=== PATIENT | male | born 1970 | race Hispanic/Latino ===

== ENCOUNTER 2018-03-17 14:47 | Emergency (ER) | payer BC ==
[2018-03-17 16:10] LABS: Absolute Lymphocytes (CBC) 1.5 K/uL (0.7-4.9); Absolute Monocytes 1.6 K/uL (0.1-1.3); Basophils % 0.5 % (0-1.3); Hematocrit 46.8 % (39.6-49.0); Lymphocytes % 9.4 % (15.3-44.8); MCV 89.8 fL (80-100); MPV 8.3 fL (7.6-11.3); RBC Red Blood Cell Count 5.21 M/uL (4.33-5.43)
[2018-03-17 16:14] LABS: Protime INR 1.11
[2018-03-17] MEDS ORDERED: AZITHROMYCIN 500 MG/250 ML BAG ONE (16:24)
[2018-03-17] MEDS ORDERED: CEFTRIAXONE/SWI 1gm 1 GM/10 ML SYR ONE (16:24)
[2018-03-17] MEDS ORDERED: NA CHLORIDE 0.9% 1,000 ML ONE (16:24)
[2018-03-17 16:31] LABS: ALT/SGPT 45 U/L (12-78); AST/SGOT 21 U/L (15-37); Albumin 3.9 g/dL (3.4-5.0); Alkaline Phosphatase 90 U/L (45-117); BUN Blood Urea Nitrogen 11 mg/dL (7-18); Bicarbonate 24 mmol/L (21-32); Bilirubin Direct 0.2 mg/dL (0-0.2); Bilirubin Total 0.7 mg/dL (0.2-1.0); Glucose Level 92 mg/dL (74-106); Lipase 181 U/L (73-393); Magnesium 1.9 mg/dL (1.8-2.4); NT PRO-BNP 19 pg/mL (<125); Potassium 4.1 mmol/L (3.5-5.1); Sodium Level 137 mmol/L (136-145); Troponin (Emerg Dept Use Only) < 0.02 ng/mL (0.0-0.045)
--- NOTE | 2018-03-17 16:31 | RAD REPORT ---
EXAM DESCRIPTION: RAD - Chest Single View - 03/17/2018 4:14 pm CLINICAL HISTORY: COUGH Chest pain. COMPARISON: Chest Single View dated 12/19/2016; Chest Pa And Lat (2 Views) dated 05/06/2016; Chest Pa And Lat (2 Views) dated 05/04/2016; CHEST SINGLE VIEW dated 06/22/2011 FINDINGS: Portable technique limits examination quality. The lungs are grossly clear. The heart is normal in size. No displaced fractures. IMPRESSION: No acute intrathoracic process suspected.
[2018-03-17 16:50] LABS: Urine Blood 2+ (NEG); Urine Glucose NEGATIVE (NEG); Urine Protein TRACE (NEG)
--- NOTE | 2018-03-17 17:07 | RAD REPORT ---
EXAM DESCRIPTION: CT - Angio Aorta For Dissection - 03/17/2018 4:53 pm CLINICAL HISTORY: Chest pain radiating to the back. Abdominal distention;Cough;Pain;SOB COMPARISON: Abdomen W Contrast dated 09/28/2016; Abdomen Pelvis W Contrast dated 05/04/2016 TECHNIQUE: CT angiography of the aorta was performed with MIPs. All CT scans are performed using dose optimization technique as appropriate and may include automated exposure control or mA/KV adjustment according to patient size. FINDINGS: A left aortic arch is present with normal branching pattern of the great vessels.No acute aortic finding is seen such as aneurysm, penetrating ulcer or dissection. The celiac axis, SMA, MIKEY and renal arteries are widely patent. No evidence of pulmonary embolism. The lungs are clear. The prominent diffuse fatty liver pattern is present.The spleen, pancreas, adrenal glands and kidneys are within normal limits for arterial phase imaging. No bowel obstruction, free fluid or abscess.A normal appendix is seen.No pathologic enlarged lymphade nopathy identified. No fracture or worrisome bone lesion seen. IMPRESSION: No acute aortic finding is demonstrated. Prominent fatty liver.
--- NOTE | 2018-03-17 18:14 | ER ---
Nurse's Notes [facility] Name: Richard Valencia Age: 48 yrs Sex: Male : 1970 Arrival Date: 03/17/2018 Time: 14:51 Bed 17 Private MD: Azeb Truong H Diagnosis: Acute upper respiratory infection, unspecified;Cough;Elevated white blood cell count Presentation: 03/17 14:56 Presenting complaint: Patient states: He's been coughing for the past 3 weeks and its aj1 getting worse. Patient has not seen his PHCP regarding this complaint. Patient has also been having abdominal pain since yesterday morning. Patient also reports body aches. Transition of care: patient was not received from another setting of care. Onset of symptoms was February 2018. Risk Assessment: Do you want to hurt yourself or someone else? Patient reports no desire to harm self or others. Initial Sepsis Screen: Does the patient meet any 2 criteria? HR > 90 bpm. No. Patient's initial sepsis screen is negative. Does the patient have a suspected source of infection? Yes: Acute abdominal pain. Care prior to arrival: None. 14:56 Method Of Arrival: Ambulatory aj1 14:56 Acuity: GANESH 3 aj1 Triage Assessment: 15:00 General: Appears in no apparent distress. comfortable, Behavior is calm, cooperative, aj1 appropriate for age. Pain: Complains of pain in abdomen Pain currently is 4 out of 10 on a pain scale. Neuro: Level of Consciousness is awake, alert, obeys commands. Cardiovascular: Patient's skin is warm and dry. Respiratory: Airway is patent Respiratory effort is even, unlabored, Respiratory pattern is regular, symmetrical. Historical: - Allergies: 15:00 No Known Allergies; aj1 - Home Meds: 15:00 aspirin 81 mg Oral chew 1 tab once daily [Active]; Amoxicillin Oral [Active]; atenolol aj1 50 mg Oral tab 1 tab once daily [Active]; - PMHx: 15:00 Hypertension; aj1 - Immunization history:: Flu vaccine is up to date. - Social history:: Smoking status: Patient/guardian denies using tobacco. - Ebola Screening: : Patient denies travel to an Ebola-affected area in the 21 days before illness onset. Screenin:02 Abuse screen: Denies threats or abuse. Denies injuries from another. Nutritional hj screening: No deficits noted. Tuberculosis screening: No symptoms or risk factors identified. Fall Risk None identified. Assessment: 15:03 General: Appears in no apparent distress. uncomfortable, Behavior is calm, cooperative, hj appropriate for age. Pain: Complains of pain in abdomen. Neuro: Level of Consciousness is awake, alert, obeys commands, Oriented to person, place, time, situation, Appropriate for age. Cardiovascular: Capillary refill < 3 seconds Patient's skin is warm and dry. Respiratory: Airway is patent Respiratory effort is even, unlabored, Respiratory pattern is regular, symmetrical. GI: Reports lower abdominal pain, upper abdominal pain. : No signs and/or symptoms were reported regarding the genitourinary system. EENT: No signs and/or symptoms were reported regarding the EENT system. Derm: No signs and/or symptoms reported regarding the dermatologic system. Musculoskeletal: No signs and/or symptoms reported regarding the musculoskeletal system. 16:40 Reassessment: Patient and/or family updated on plan of care and expected duration. Pain hj level reassessed. Patient is alert, oriented x 3, equal unlabored respirations, skin warm/dry/pink. awaiting results and POC;. Vital Signs: 15:00 BP 160 / 106; Pulse 110; Resp 18; Temp 99.4(TE); Pulse Ox 97% on R/A; Weight 81.65 kg aj1 (R); Height 5 ft. 6 in. (167.64 cm) (R); Pain 4/10; 16:40 BP 152 / 102; Pulse 88; Resp 18; Pulse Ox 99% on R/A; hj 17:37 BP 123 / 73; Pulse 69; Resp 18; Pulse Ox 100% on R/A; mt 15:00 Body Mass Index 29.05 (81.65 kg, 167.64 cm) aj1 ED Course: 14:51 Patient arrived in ED. mr 14:51 Azeb Truong DO is Private Physician. mr 14:59 Triage completed. aj1 15:00 Arm band placed on Patient placed in an exam room. aj1 15:02 Mason Zamora, RAIANA is Primary Nurse. hj 15:03 Patient has correct armband on for positive identification. Bed in low position. Call hj light in reach. Side rails up X 1. 15:06 Kole Darden MD is Attending Physician. [facility] 15:48 Radiology exam delayed due to IV insertion attempt and/or patient not having nj appropriate IV at this time. 16:00 Initial lab(s) drawn, by me, sent to lab. iw 16:14 XRAY Chest (1 view) In Process Unspecified. EDMS 16:27 Inserted saline lock: 22 gauge in right antecubital area, using aseptic technique. iw Blood collected. 16:49 CT completed. Patient moved to CT via wheelchair. cw1 16:53 CT Aorta for Dissection In Process Unspecified. EDMS 18:12 Azeb Truong DO is Referral Physician. [facility] 18:55 No provider procedures requiring assistance completed. IV discontinued, intact, hj bleeding controlled, No redness/swelling at site. Pressure dressing applied. Administered Medications: 15:45 Drug: NS 0.9% 500 ml Route: IV; Rate: bolus; Site: right antecubital; hj 15:45 Drug: NS 0.9% 1000 ml Route: IV; Rate: 125 ml/hr; Site: right antecubital; hj 18:57 Follow up: IV Status: Completed infusion hj 15:45 Drug: Zithromax 500 mg Route: IVPB; Infused Over: 1 hrs; Site: right antecubital; hj 16:45 Follow up: IV Status: Completed infusion hj 16:15 Drug: Rocephin - (cefTRIAXone) 1 grams Route: IVPB; Infused Over: 30 mins; Site: right rv antecubital; Outcome: 18:13 Discharge ordered by . [facility] 18:55 Discharged to home ambulatory, with family. 18:55 Condition: stable 18:55 Discharge instructions given to patient, family, Instructed on discharge instructions, follow up and referral plans. medication usage, Demonstrated understanding of instructions, follow-up care, medications, Prescriptions given X 2. 18:56 Patient left the ED. hj Signatures: Dispatcher [employer] EDUT Ivelisse Chanel, ARIANA RN aj1 Kole Darden MD MD cha Rivera, Evelyn Aguilera RN RN iw Woodley, Crystal cw1 Mason Zamora RN RN hj Jordan, Nathan nj Thompson, Moriah mt Vicente, Ronaldo, RN RN rv
--- NOTE | 2018-03-17 18:14 | EDPHYS ---
Physician Documentation [facility] Name: Richard Valencia Age: 48 yrs Sex: Male : 1970 Arrival Date: 03/17/2018 Time: 14:51 Bed 17 Private MD: Azeb Truong H ED Physician Kole Darden HPI: 03/17 15:38 This 48 yrs old Male presents to ER via Ambulatory with complaints of Cough. tony 15:38 The patient or guardian reports airway noise, cough. Onset: The symptoms/episode tony began/occurred 3 day(s) ago. Severity of symptoms: At their worst the symptoms were mild, in the emergency department the symptoms are unchanged. Associated signs and symptoms: Pertinent positives: nausea. Historical: - Allergies: 15:00 No Known Allergies; aj1 - Home Meds: 15:00 aspirin 81 mg Oral chew 1 tab once daily [Active]; Amoxicillin Oral [Active]; atenolol aj1 50 mg Oral tab 1 tab once daily [Active]; - PMHx: 15:00 Hypertension; aj1 - Immunization history:: Flu vaccine is up to date. - Social history:: Smoking status: Patient/guardian denies using tobacco. - Ebola Screening: : Patient denies travel to an Ebola-affected area in the 21 days before illness onset. ROS: 15:39 Constitutional: Negative for fever, chills, and weight loss, Eyes: Negative for injury, tony pain, redness, and discharge, ENT: Negative for injury, pain, and discharge, Neck: Negative for injury, pain, and swelling, Cardiovascular: Negative for chest pain, palpitations, and edema, Back: Negative for injury and pain, : Negative for injury, bleeding, discharge, and swelling, MS/Extremity: Negative for injury and deformity, Skin: Negative for injury, rash, and discoloration, Neuro: Negative for headache, weakness, numbness, tingling, and seizure, Psych: Negative for depression, anxiety, suicide ideation, homicidal ideation, and hallucinations, Allergy/Immunology: Negative for hives, rash, and allergies, Endocrine: Negative for neck swelling, polydipsia, polyuria, polyphagia, and marked weight changes, Hematologic/Lymphatic: Negative for swollen nodes, abnormal bleeding, and unusual bruising. 15:39 Respiratory: Positive for cough, shortness of breath. 15:39 Abdomen/GI: Positive for abdominal pain, nausea, of the epigastric area, right upper quadrant and left upper quadrant. Exam: 15:39 Constitutional: This is a well developed, well nourished patient who is awake, alert, tony and in no acute distress. Head/Face: Normocephalic, atraumatic. Eyes: Pupils equal round and reactive to light, extra-ocular motions intact. Lids and lashes normal. Conjunctiva and sclera are non-icteric and not injected. Cornea within normal limits. Periorbital areas with no swelling, redness, or edema. ENT: Nares patent. No nasal discharge, no septal abnormalities noted. Tympanic membranes are normal and external auditory canals are clear. Oropharynx with no redness, swelling, or masses, exudates, or evidence of obstruction, uvula midline. Mucous membranes moist. Neck: Trachea midline, no thyromegaly or masses palpated, and no cervical lymphadenopathy. Supple, full range of motion without nuchal rigidity, or vertebral point tenderness. No Meningismus. Chest/axilla: Normal chest wall appearance and motion. Nontender with no deformity. No lesions are appreciated. Cardiovascular: Regular rate and rhythm with a normal S1 and S2. No gallops, murmurs, or rubs. Normal PMI, no JVD. No pulse deficits. Back: No spinal tenderness. No costovertebral tenderness. Full range of motion. Male : Normal genitalia with no discharge or lesions. Skin: Warm, dry with normal turgor. Normal color with no rashes, no lesions, and no evidence of cellulitis. MS/ Extremity: Pulses equal, no cyanosis. Neurovascular intact. Full, normal range of motion. Neuro: Awake and alert, GCS 15, oriented to person, place, time, and situation. Cranial nerves II-XII grossly intact. Motor strength 5/5 in all extremities. Sensory grossly intact. Cerebellar exam normal. Normal gait. Psych: Awake, alert, with orientation to person, place and time. Behavior, mood, and affect are within normal limits. 15:39 Respiratory: the patient does not display signs of respiratory distress, Respirations: normal. 15:39 Abdomen/GI: Inspection: abdomen appears normal, Bowel sounds: normal, Palpation: mild abdominal tenderness, in the right upper quadrant and left upper quadrant. 18:11 Neck: ROM/movement: is normal, no acute changes, Meningeal signs: are not present, [facility] Kernig's sign is negative, Brudzinski's sign is negative. Vital Signs: 15:00 BP 160 / 106; Pulse 110; Resp 18; Temp 99.4(TE); Pulse Ox 97% on R/A; Weight 81.65 kg aj1 (R); Height 5 ft. 6 in. (167.64 cm) (R); Pain 4/10; 16:40 BP 152 / 102; Pulse 88; Resp 18; Pulse Ox 99% on R/A; hj 17:37 BP 123 / 73; Pulse 69; Resp 18; Pulse Ox 100% on R/A; mt 15:00 Body Mass Index 29.05 (81.65 kg, 167.64 cm) aj1 MDM: 15:06 Patient medically screened. [facility] 15:41 Data reviewed: vital signs, nurses notes, lab test result(s), EKG, radiologic studies, [facility] CT scan, plain films. 03/17 15:36 Order name: Basic Metabolic Panel [facility] 03/17 15:36 Order name: CBC with Diff [facility] 03/17 15:36 Order name: LFT's [facility] 03/17 15:36 Order name: Magnesium [facility] 03/17 15:36 Order name: NT PRO-BNP [facility] 03/17 15:36 Order name: PT-INR; Complete Time: 18:10 [facility] 03/17 15:36 Order name: Troponin (emerg Dept Use Only); Complete Time: 18:10 [facility] 03/17 15:36 Order name: Lipase; Complete Time: 18:10 [facility] 03/17 15:36 Order name: Flu; Complete Time: 18:10 [facility] 03/17 15:36 Order name: Urine Culture [facility] 03/17 15:37 Order name: Basic Metabolic Panel; Complete Time: 18:10 [facility] 03/17 15:37 Order name: CBC with Automated Diff; Complete Time: 18:10 [facility] 03/17 15:37 Order name: Liver (Hepatic) Function; Complete Time: 18:10 [facility] 03/17 15:37 Order name: Magnesium; Complete Time: 18:10 [facility] 03/17 15:36 Order name: XRAY Chest (1 view); Complete Time: 18:10 [facility] 03/17 15:36 Order name: EKG; Complete Time: 15:37 [facility] 03/17 15:36 Order name: Cardiac monitoring; Complete Time: 16:28 [facility] 03/17 15:36 Order name: EKG - Nurse/Tech; Complete Time: 16:28 [facility] 03/17 15:36 Order name: IV Saline Lock; Complete Time: 16:30 [facility] 03/17 15:36 Order name: Labs collected and sent; Complete Time: 16:30 [facility] 03/17 15:36 Order name: O2 Per Protocol; Complete Time: 16:28 [facility] 03/17 15:36 Order name: O2 Sat Monitoring; Complete Time: 16:28 [facility] 03/17 15:36 Order name: Urine Dipstick-Ancillary (obtain specimen); Complete Time: 16:28 [facility] 03/17 15:36 Order name: CT Aorta for Dissection; Complete Time: 18:10 [facility] 03/17 15:37 Order name: NT PRO-BNP; Complete Time: 18:10 [facility] 03/17 16:40 Order name: Urine Dipstick--Ancillary (enter results); Complete Time: 18:10 eb Administered Medications: 15:45 Drug: NS 0.9% 500 ml Route: IV; Rate: bolus; Site: right antecubital; hj 15:45 Drug: NS 0.9% 1000 ml Route: IV; Rate: 125 ml/hr; Site: right antecubital; hj 18:57 Follow up: IV Status: Completed infusion hj 15:45 Drug: Zithromax 500 mg Route: IVPB; Infused Over: 1 hrs; Site: right antecubital; hj 16:45 Follow up: IV Status: Completed infusion hj 16:15 Drug: Rocephin - (cefTRIAXone) 1 grams Route: IVPB; Infused Over: 30 mins; Site: right rv antecubital; Disposition: 03/17/18 18:13 Discharged to Home. Impression: Acute upper respiratory infection, unspecified, Cough, Elevated white blood cell count. - Condition is Stable. - Discharge Instructions: Upper Respiratory Infection, Adult, Upper Respiratory Infection, Adult, [id number], Cough, Adult, [id number], Cough, Adult. - Prescriptions for Cheratussin AC 10- 100 mg/5 mL Oral liquid - take 10 milliliter by ORAL route every 4 hours; 160 milliliter. Zithromax 500 mg Oral Tablet - take 1 tablet by ORAL route once daily for 5 days; 5 tablet. - Medication Reconciliation Form, Thank You Letter, Antibiotic Education, Prescription Opioid Use form. - Follow up: Azeb Truong DO; When: 2 - 3 days; Reason: Recheck today's complaints, Continuance of care, Re-evaluation by your physician. - Problem is new. - Symptoms have improved. Signatures: Dispatcher [employer] EDCT Ivelisse Chanel RN RN aj1 Kole Darden MD MD cha Joaquin, Henry, RN RN hj Vicente, Ronaldo, RN RN rv Corrections: (The following items were deleted from the chart) 18:56 18:13 03/17/2018 18:13 Discharged to Home. Impression: Acute upper respiratory hj infection, unspecified; Cough; Elevated white blood cell count. Condition is Stable. Forms are Medication Reconciliation Form, Thank You Letter, Antibiotic Education, Prescription Opioid Use. Follow up: Azeb Truong; When: 2 - 3 days; Reason: Recheck today's complaints, Continuance of care, Re-evaluation by your physician. Problem is new. Symptoms have improved. tony
[2018-03-17 19:10] VITALS: TEMP 99.4
[2018-03-17 19:13] VITALS: BP 123/73; O2SAT 100
--- NOTE | 2018-03-18 07:35 | EKG ---
Test Date: 2018-03-17 Test Time: 16:18:32 Tractor Trailer Driver: LIVAN MEASUREMENT RESULTS: Intervals: Rate: 95 LA: 146 QRSD: 80 QT: 320 QTc: 402 [place]: P: 12 LA: 146 QRS: 22 T: 19 INTERPRETIVE STATEMENTS: Normal sinus rhythm Normal ECG Compared to ECG 05/06/2016 06:11:30 Sinus arrhythmia no longer present ST (T wave) deviation no longer present Electronically Signed On 03-18-18 07:34:05 [employer] by Artemio Paez
== END 2018-03-17 18:56 | disposition home or self-care (01) ==
LOC: ER 14:47
DX: J06.9 Acute upper respiratory infection, unspecified (principal); D72.829 Elevated white blood cell count, unspecified; I10 Essential (primary) hypertension; Z79.82 Long term (current) use of aspirin
CPT/HCPCS: 36415; 71045; 71275; 74175; 80048; 80076; 81003; 83690; 83735; 83880; 84484; 85025; 85610; 87086; 87088; 87804; 93005; 96361; 96365; 96375; 99284; J0456; J0696; J7030; Q9967

== ENCOUNTER 2018-09-17 17:45 | Emergency (ER) | payer BC ==
--- NOTE | 2018-09-17 18:57 | RAD REPORT ---
EXAM DESCRIPTION: RAD - Chest Pa And Lat (2 Views) - 09/17/2018 6:50 pm CLINICAL HISTORY: COUGH Chest pain. COMPARISON: <Comparisons> FINDINGS: The lungs are clear. The heart is normal in size. No displaced fractures. IMPRESSION: No acute or concerning finding suspected.
[2018-09-17 19:14] LABS: RBC Red Blood Cell Count 5.26 M/uL (4.33-5.43)
[2018-09-17 19:15] LABS: Absolute Lymphocytes (CBC) 1.5 K/uL (0.7-4.9); Absolute Monocytes 1.5 K/uL (0.1-1.3); Absolute Neutrophil 13.6 K/uL (1.8-8.0); Basophils % 0.5 % (0-1.3); Eosinophils % 1.6 % (0-4.4); Hematocrit 47.3 % (39.6-49.0); Lymphocytes % 9.1 % (15.3-44.8); MPV 8.7 fL (7.6-11.3); Monocytes % 8.6 % (3.3-12.3)
[2018-09-17] MEDS ORDERED: AZITHROMYCIN 250 MG TAB ONE (19:28)
[2018-09-17] MEDS ORDERED: NA CHLORIDE 0.9% 1,000 ML ONE (19:28)
[2018-09-17] MEDS ORDERED: CEFTRIAXONE/SWI 1gm 1 GM/10 ML SYR ONE (19:28)
[2018-09-17 19:34] LABS: Albumin 4.1 g/dL (3.4-5.0); Bilirubin Total 1.1 mg/dL (0.2-1.0); Protein, Total 8.2 g/dL (6.4-8.2)
--- NOTE | 2018-09-17 19:34 | ER ---
Nurse's Notes [facility] Name: Richard Valencia Age: 48 yrs Sex: Male : 1970 Arrival Date: 09/17/2018 Time: 17:47 Bed 27 Private MD: Diagnosis: Acute bronchitis Presentation: 09/17 17:49 Presenting complaint: Productive cough with white blood streaked mucus, headache, and hb upper abdominal pain x 3 days. Transition of care: patient was not received from another setting of care. Onset of symptoms was September 14, 2018. Risk Assessment: Do you want to hurt yourself or someone else? Patient reports no desire to harm self or others. Care prior to arrival: None. 17:49 Method Of Arrival: Ambulatory hb 17:49 Acuity: GANESH 3 hb 17:49 Initial Sepsis Screen: Does the patient meet any 2 criteria? No. Patient's initial ls4 sepsis screen is negative. Does the patient have a suspected source of infection? No. Patient's initial sepsis screen is negative. Triage Assessment: 19:09 General: Appears uncomfortable, Behavior is calm, cooperative. Pain: Complains of pain ls4 in back and chest Quality of pain is described as Aggravated by coughing. Neuro: No deficits noted. Cardiovascular: No deficits noted. GI: No deficits noted. Musculoskeletal: No deficits noted. 19:09 Derm: Skin is pink, warm \T\ dry. ls4 Historical: - Allergies: 17:51 No Known Allergies; hb - Home Meds: 17:51 aspirin 81 mg Oral tab 1 tab once daily [Active]; atenolol 50 mg Oral tab 1 tab once hb daily [Active]; - PMHx: 17:51 Hypertension; hb - Immunization history:: Adult Immunizations up to date. - Social history:: Smoking status: Patient/guardian denies using tobacco, Patient/guardian denies using alcohol, street drugs, The patient lives with family. - Ebola Screening: : No symptoms or risks identified at this time. - Family history:: not pertinent. Screenin:05 Abuse screen: Denies threats or abuse. Denies injuries from another. Nutritional ls4 screening: No deficits noted. Tuberculosis screening: No symptoms or risk factors identified. Fall Risk None identified. Assessment: 18:45 GI: Bowel sounds present X 4 quads. Abd is soft and non tender X 4 quads. ls4 Vital Signs: 17:50 BP 149 / 9; Pulse 95; Resp 20; Temp 98.9; Pulse Ox 97% on R/A; Weight 81.65 kg; Height hb 5 ft. 6 in. (167.64 cm); Pain 5/10; 17:50 Body Mass Index 29.05 (81.65 kg, 167.64 cm) hb ED Course: 17:47 Patient arrived in ED. rg4 17:49 Triage completed. hb 17:50 Arm band placed on. hb 17:52 Graeme Torres MD is Attending Physician. ma2 18:39 Celine Gutiérrez RN is Primary Nurse. ls4 18:45 No provider procedures requiring assistance completed. Inserted saline lock: 20 gauge ls4 in right antecubital area, using aseptic technique. Blood collected. 18:45 Initial lab(s) drawn, by me, sent to lab. First set of blood cultures drawn Second set ls4 of blood cultures drawn. 18:48 Chest Pa And Lat (2 Views) XRAY In Process Unspecified. EDMS 19:05 Patient has correct armband on for positive identification. Placed in gown. Bed in low ls4 position. Call light in reach. Side rails up X 1. Pulse ox on. NIBP on. Warm blanket given. Verbal reassurance given. Administered Medications: 19:23 Drug: AZITHromycin 500 mg Route: PO; ls4 19:52 Follow up: Response: No adverse reaction ls4 19:52 Follow up: Response: No adverse reaction ls4 19:23 Drug: NS 0.9% 1000 ml Route: IV; Rate: 1 bolus; Site: right antecubital; ls4 20:18 Follow up: IV Status: Completed infusion; IV Intake: 1000ml ls4 19:24 Drug: Rocephin 1 grams Route: IV; Rate: calculated rate; Site: right antecubital; ls4 19:34 Follow up: IV Status: Completed infusion; IV Intake: 10ml ls4 19:52 Follow up: Response: No adverse reaction ls4 20:00 Drug: TORadol 30 mg Route: IVP; Site: right antecubital; ls4 20:18 Follow up: Response: No adverse reaction; Marked relief of symptoms ls4 Intake: 19:34 IV: 10ml; Total: 10ml. ls4 20:18 IV: 1000ml; Total: 1010ml. ls4 Outcome: 19:33 Discharge ordered by . simón 20:22 Patient left the ED. ls4 Signatures: Dispatcher [employer] EDDamari Ford, RN RN Meghana Head rg4 Graeme Torres MD MD ma2 Celine Gutiérrez RN RN ls4
--- NOTE | 2018-09-17 19:34 | EDPHYS ---
Physician Documentation [facility] Name: Richard Valencia Age: 48 yrs Sex: Male : 1970 Arrival Date: 09/17/2018 Time: 17:47 Bed 27 Private MD: ED Physician Graeme Torres HPI: 09/17 18:56 This 48 yrs old Male presents to ER via Ambulatory with complaints of ma2 Abdominal Pain, Cough. 18:56 Onset: The symptoms/episode began/occurred gradually, 2 day(s) ago. Severity of ma2 symptoms: At their worst the symptoms were moderate, in the emergency department the symptoms are unchanged. Associated signs and symptoms: Pertinent positives: chest pain, cough, this patient has no pertinent positive symptoms Pertinent negatives: diarrhea, ear ache, nausea. The patient has experienced a previous episode, last year. Historical: - Allergies: 17:51 No Known Allergies; hb - Home Meds: 17:51 aspirin 81 mg Oral tab 1 tab once daily [Active]; atenolol 50 mg Oral tab 1 tab once hb daily [Active]; - PMHx: 17:51 Hypertension; hb - Immunization history:: Adult Immunizations up to date. - Social history:: Smoking status: Patient/guardian denies using tobacco, Patient/guardian denies using alcohol, street drugs, The patient lives with family. - Ebola Screening: : No symptoms or risks identified at this time. - Family history:: not pertinent. ROS: 18:56 Constitutional: Negative for fever, chills, and weight loss. ma2 18:56 Respiratory: Positive for cough, hemoptysis, Negative for orthopnea, shortness of breath, wheezing. 18:56 All other systems are negative. Exam: 18:56 Constitutional: This is a well developed, well nourished patient who is awake, alert, ma2 and in no acute distress. Head/Face: Normocephalic, atraumatic. Neck: Trachea midline, no thyromegaly or masses palpated, and no cervical lymphadenopathy. Supple, full range of motion without nuchal rigidity, or vertebral point tenderness. No Meningismus. Chest/axilla: Normal chest wall appearance and motion. Nontender with no deformity. No lesions are appreciated. Cardiovascular: Regular rate and rhythm with a normal S1 and S2. No gallops, murmurs, or rubs. Normal PMI, no JVD. No pulse deficits. Respiratory: Lungs have equal breath sounds bilaterally, clear to auscultation and percussion. No rales, rhonchi or wheezes noted. No increased work of breathing, no retractions or nasal flaring. Abdomen/GI: Soft, non-tender, with normal bowel sounds. No distension or tympany. No guarding or rebound. No evidence of tenderness throughout. MS/ Extremity: Pulses equal, no cyanosis. Neurovascular intact. Full, normal range of motion. Neuro: Awake and alert, GCS 15, oriented to person, place, time, and situation. Cranial nerves II-XII grossly intact. Motor strength 5/5 in all extremities. Sensory grossly intact. Cerebellar exam normal. Normal gait. 18:56 ENT: TM's: are normal, Nose: is normal, Mouth: is normal, Posterior pharynx: Tonsils: ma2 bilaterally enlarged, with erythema, with exudate, erythema. Vital Signs: 17:50 BP 149 / 9; Pulse 95; Resp 20; Temp 98.9; Pulse Ox 97% on R/A; Weight 81.65 kg; Height hb 5 ft. 6 in. (167.64 cm); Pain 5/10; 17:50 Body Mass Index 29.05 (81.65 kg, 167.64 cm) hb MDM: 17:52 Patient medically screened. [facility] 18:56 Differential Diagnosis: Bronchitis Upper Respiratory Infection Pharyngitis. [facility] 19:33 Data reviewed: vital signs, nurses notes. Counseling: I had a detailed discussion with [facility] the patient and/or guardian regarding: the historical points, exam findings, and any diagnostic results supporting the discharge/admit diagnosis, the presence of at least one elevated blood pressure reading (>120/80) during this emergency department visit, the need for outpatient follow up. Response to treatment: the patient's symptoms have markedly improved after treatment. 09/17 18:24 Order name: CBC with Diff; Complete Time: 19:31 [facility] 09/17 18:24 Order name: CMP [facility] 09/17 18:24 Order name: Chest Pa And Lat (2 Views) XRAY; Complete Time: 19:31 [facility] 09/17 18:24 Order name: Blood Culture Adult (2) [facility] 09/17 19:24 Order name: Lactate 4 09/17 19:24 Order name: Troponin (emerg Dept Use Only) 4 09/17 19:24 Order name: EKG; Complete Time: 19:27 ls4 09/17 19:24 Order name: EKG - Nurse/Tech; Complete Time: 19:57 ls4 Administered Medications: 19:23 Drug: AZITHromycin 500 mg Route: PO; ls4 19:52 Follow up: Response: No adverse reaction ls4 19:52 Follow up: Response: No adverse reaction ls4 19:23 Drug: NS 0.9% 1000 ml Route: IV; Rate: 1 bolus; Site: right antecubital; ls4 20:18 Follow up: IV Status: Completed infusion; IV Intake: 1000ml 4 19:24 Drug: Rocephin 1 grams Route: IV; Rate: calculated rate; Site: right antecubital; ls4 19:34 Follow up: IV Status: Completed infusion; IV Intake: 10ml ls4 19:52 Follow up: Response: No adverse reaction ls4 20:00 Drug: TORadol 30 mg Route: IVP; Site: right antecubital; ls4 20:18 Follow up: Response: No adverse reaction; Marked relief of symptoms ls4 Disposition: 09/17/18 19:33 Discharged to Home. Impression: Acute bronchitis. - Condition is Stable. - Discharge Instructions: Acute Bronchitis, Adult. - Prescriptions for Tylenol- Codeine #3 300-30 mg Oral Tablet - take 2 tablet by ORAL route every 6 hours As needed; 30 tablet. Tessalon Perles 100 mg Oral Capsule - take 1 capsule by ORAL route every 8 hours As needed; 15 capsule. Zithromax Z- Sarabjit 250 mg Oral Tablet - take 1 tablet by ORAL route as directed for 5 days Day 1 - take two (2) tablets one time. Day 2, 3, 4 , 5 take one (1) tablet once daily.; 6 tablet. Medrol (Sarabjit) 4 mg Oral Tablets, Dose Pack - take 1 tablet by ORAL route as directed - follow package instructions; 1 packet. - Medication Reconciliation Form, Thank You Letter, Antibiotic Education, Prescription Opioid Use form. - Follow up: Private Physician; When: Tomorrow; Reason: Recheck today's complaints, Continuance of care. - Notes: follow up with your pcp to get more tests done Signatures: Dispatcher [employer] EDDamari Ford RN RN Graeme Torres MD MD ma2 Celine Gutiérrez RN RN ls4 Corrections: (The following items were deleted from the chart) 20:22 19:33 09/17/2018 19:33 Discharged to Home. Impression: Acute bronchitis. Condition is ls4 Stable. Forms are Medication Reconciliation Form, Thank You Letter, Antibiotic Education, Prescription Opioid Use. Follow up: Private Physician; When: Tomorrow; Reason: Recheck today's complaints, Continuance of care. ma2
[2018-09-17] MEDS ORDERED: KETOROLAC 30 MG/ML INJ ONE (20:14)
[2018-09-18 04:23] VITALS: BP 149/9; TEMP 98.9; O2SAT 97
--- NOTE | 2018-09-18 07:31 | EKG ---
Test Date: 2018-09-17 Test Time: 19:29:25 Support Team Assoc: [facility] MEASUREMENT RESULTS: Intervals: Rate: 96 AL: 148 QRSD: 78 QT: 338 QTc: 427 [place]: P: 33 AL: 148 QRS: 51 T: 54 INTERPRETIVE STATEMENTS: Normal sinus rhythm Normal ECG Compared to ECG 09/11/2018 09:40:31 Sinus bradycardia no longer present Electronically Signed On 09-18-18 07:30:57 CDT by Artemio Paez
== END 2018-09-17 20:22 | disposition home or self-care (01) ==
LOC: ER 17:45
DX: J20.9 Acute bronchitis, unspecified (principal); Z79.82 Long term (current) use of aspirin; I10 Essential (primary) hypertension
CPT/HCPCS: 36415; 71046; 80053; 83605; 84484; 85025; 87040; 93005; 96361; 96374; 96375; 99284; J0696; J7030

== ENCOUNTER 2019-10-04 17:00 | Emergency (ER) | payer BC ==
--- NOTE | 2019-10-04 17:44 | EDPHYS ---
Physician Documentation [facility] Name: Richard Valencia Age: 49 yrs Sex: Male : 1970 Arrival Date: 10/04/2019 Time: 17:00 Bed 13 Private MD: ED Physician Kole Darden HPI: 10/03 17:35 This 49 yrs old Male presents to ER via Ambulatory with complaints of Facial tony Droop, Numbness Of Lips, Headache. 17:35 The patient presents to the emergency department with weakness of the right side of the tony face, that is moderate. Onset: The symptoms/episode began/occurred this morning, today. Context: occurred at an unknown location. Associated signs and symptoms: Pertinent positives: headache. Severity of symptoms: At their worst the symptoms were mild in the emergency department the symptoms are unchanged. Patient's baseline: Neuro: alert and fully oriented. Current symptoms: paralysis or paresis, of the forehead, right eye, right cheek and right jaw, that is mild. The patient has not experienced similar symptoms in the past. Historical: - Allergies: 17:09 No Known Allergies; aa5 - PMHx: 17:09 Hypertension; aa5 - PSHx: 17:09 None; aa5 - Immunization history:: Adult Immunizations unknown. - Social history:: Smoking status: Patient denies any tobacco usage or history of. - Family history:: not pertinent. ROS: 17:35 Constitutional: Negative for fever, chills, and weight loss, Eyes: Negative for injury, tony pain, redness, and discharge, ENT: Negative for injury, pain, and discharge, Neck: Negative for injury, pain, and swelling, Cardiovascular: Negative for chest pain, palpitations, and edema, Respiratory: Negative for shortness of breath, cough, wheezing, and pleuritic chest pain, Abdomen/GI: Negative for abdominal pain, nausea, vomiting, diarrhea, and constipation, Back: Negative for injury and pain, : Negative for injury, bleeding, discharge, and swelling, MS/Extremity: Negative for injury and deformity, Skin: Negative for injury, rash, and discoloration, Psych: Negative for depression, anxiety, suicide ideation, homicidal ideation, and hallucinations, Allergy/Immunology: Negative for hives, rash, and allergies, Endocrine: Negative for neck swelling, polydipsia, polyuria, polyphagia, and marked weight changes, Hematologic/Lymphatic: Negative for swollen nodes, abnormal bleeding, and unusual bruising. 17:35 Neuro: Positive for headache, of the forehead, right eye, right cheek and right jaw. Exam: 17:35 Constitutional: This is a well developed, well nourished patient who is awake, alert, tony and in no acute distress. Eyes: Pupils equal round and reactive to light, extra-ocular motions intact. Lids and lashes normal. Conjunctiva and sclera are non-icteric and not injected. Cornea within normal limits. Periorbital areas with no swelling, redness, or edema. ENT: Nares patent. No nasal discharge, no septal abnormalities noted. Tympanic membranes are normal and external auditory canals are clear. Oropharynx with no redness, swelling, or masses, exudates, or evidence of obstruction, uvula midline. Mucous membranes moist. Neck: Trachea midline, no thyromegaly or masses palpated, and no cervical lymphadenopathy. Supple, full range of motion without nuchal rigidity, or vertebral point tenderness. No Meningismus. Chest/axilla: Normal chest wall appearance and motion. Nontender with no deformity. No lesions are appreciated. Cardiovascular: Regular rate and rhythm with a normal S1 and S2. No gallops, murmurs, or rubs. Normal PMI, no JVD. No pulse deficits. Respiratory: Lungs have equal breath sounds bilaterally, clear to auscultation and percussion. No rales, rhonchi or wheezes noted. No increased work of breathing, no retractions or nasal flaring. Abdomen/GI: Soft, non-tender, with normal bowel sounds. No distension or tympany. No guarding or rebound. No evidence of tenderness throughout. Back: No spinal tenderness. No costovertebral tenderness. Full range of motion. Skin: Warm, dry with normal turgor. Normal color with no rashes, no lesions, and no evidence of cellulitis. MS/ Extremity: Pulses equal, no cyanosis. Neurovascular intact. Full, normal range of motion. Psych: Awake, alert, with orientation to person, place and time. Behavior, mood, and affect are within normal limits. 17:35 Head/face: Noted is no obvious of injury or deformity except abrasion(s), contusion, ecchymosis, hematoma, raccoon eye(s), tenderness, rehead included paralysis. 17:35 Neuro: Orientation: is normal, appropriate for stated age, no acute changes, Mentation: is normal, appropriate for stated age, no acute changes, Memory: is normal, appropriate for stated age, no acute changes, Cranial nerves: grossly normal, is grossly normal based on the patient's age, no acute changes, Cerebellar function: is grossly normal, is grossly normal based on the patient's age, no acute changes, Motor: is normal, is grossly normal based on the patient's age, no acute changes, moves all fours, strength is normal, strength is 5/5 in all extremities, Sensation: is normal, no obvious gross deficits, appropriate no acute changes, Gait: is steady, appropriate for age, Babinski testing is normal, seizure activity, is not displayed by the patient. Vital Signs: 17:10 BP 139 / 93; Pulse 69; Resp 18 S; Temp 98.3(O); Pulse Ox 99% on R/A; Weight 81.65 kg aa5 (R); Height 5 ft. 6 in. (167.64 cm) (R); Pain 5/10; 18:11 BP 134 / 78; Pulse 66; Resp 18; Temp 98.4(O); Pulse Ox 99% on R/A; Pain 0/10; ls4 19:19 BP 133 / 80; Pulse 62; Resp 16; Pulse Ox 99% on R/A; Pain 0/10; ls4 17:10 Body Mass Index 29.05 (81.65 kg, 167.64 cm) aa5 MDM: 17:16 Patient medically screened. [facility] 17:39 Data reviewed: vital signs, nurses notes, radiologic studies, CT scan. [facility] 17:39 Data interpreted: secured entrance monitor: rate is 69 beats/min, Pulse oximetry: on room air is tony 99 %. Counseling: I had a detailed discussion with the patient and/or guardian regarding: the historical points, exam findings, and any diagnostic results supporting the discharge/admit diagnosis, lab results, the need for outpatient follow up, for definitive care, a neurologist. ED course: described the diagnosis to the patient and his , will follow up dr draper. 10/03 17:35 Order name: CT Head Brain wo Cont tony Administered Medications: 18:02 Drug: predniSONE 60 mg Route: PO; ls4 18:22 Follow up: Response: No adverse reaction ls4 18:02 Drug: Valtrex 1000 mg Route: PO; ls4 18:22 Follow up: Response: No adverse reaction ls4 Disposition: 10/04/19 17:43 Discharged to Home. Impression: Lucero's palsy. - Condition is Stable. - Discharge Instructions: Lucero Palsy, Adult, Aspirin and Your Heart. - Prescriptions for Artificial Tears - instill 1 application by OPHTHALMIC route 6 times per day; 20 milliliter. Valtrex 1 g Oral Tablet - take 1 tablet by ORAL route every 8 hours for 7 days; 21 tablet. Prednisone 20 mg Oral Tablet - take 2 tablet by ORAL route once daily for 5 days; 10 tablet. - Medication Reconciliation Form, Thank You Letter, Antibiotic Education, Prescription Opioid Use form. - Follow up: Private Physician; When: 2 - 3 days; Reason: Recheck today's complaints, Continuance of care, Re-evaluation by your physician. Follow up: Hima Draper MD; When: 2 - 3 days; Reason: Recheck today's complaints, Continuance of care, Re-evaluation by your physician. - Problem is new. - Symptoms have improved. Signatures: Dispatcher [employer] EDWI Kole Darden MD MD cha Calderon, Audri, RN RN aa5 Ashlie Dennis, ARIANA RN lp1 Celine Gutiérrez, RN RN ls4 Corrections: (The following items were deleted from the chart) 19:19 17:43 10/04/2019 17:43 Discharged to Home. Impression: Lucero's palsy. Condition is lp1 Stable. Forms are Medication Reconciliation Form, Thank You Letter, Antibiotic Education, Prescription Opioid Use. Follow up: Private Physician; When: 2 - 3 days; Reason: Recheck today's complaints, Continuance of care, Re-evaluation by your physician. Follow up: Hima Draper; When: 2 - 3 days; Reason: Recheck today's complaints, Continuance of care, Re-evaluation by your physician. Problem is new. Symptoms have improved. tony
--- NOTE | 2019-10-04 17:44 | ER ---
Nurse's Notes [facility] Name: Richard Valencia Age: 49 yrs Sex: Male : 1970 Arrival Date: 10/04/2019 Time: 17:00 Bed 13 Private MD: Diagnosis: Lucero's palsy Presentation: 10/03 17:05 Chief complaint: Patient states: woke up with a facial droop around 0830am, pt also aa5 reports headache. 17:05 Coronavirus screen: Proceed with normal triage. Patient denies a cough. Patient denies aa5 shortness of breath or difficulty breathing. Patient denies measured and/or subjective temperature greater than 100.4F prior to today's visit. Patient denies travel on a cruise ship or to a country the [facility] currently lists as an affected area. Patient denies contact with known and/or suspected case of COVID-19. Ebola Screen: Patient negative for fever greater than or equal to 101.5 degrees Fahrenheit, and additional compatible Ebola Virus Disease symptoms. An acute neurological deficit is present. Pre-hospital glucose is not applicable to this patient. Initial Sepsis Screen: Does the patient meet any 2 criteria? No. Patient's initial sepsis screen is negative. Does the patient have a suspected source of infection? No. Patient's initial sepsis screen is negative. Risk Assessment: Do you want to hurt yourself or someone else? Patient reports no desire to harm self or others. Onset of symptoms was October 04, 2019. 17:05 Acuity: GANESH 2 aa5 17:05 Method Of Arrival: Ambulatory aa5 Stroke Activation: Symptom onset > 6 hours Physician: Stroke Attending; Name: ; Notified At: ; Arrived At: Physician: Chief Stroke Resident; Name: ; Notified At: ; Arrived At: Physician: Stroke Resident; Name: ; Notified At: ; Arrived At: Physician: ED Attending; Name: ; Notified At: ; Arrived At: Physician: ED Resident; Name: ; Notified At: ; Arrived At: Historical: - Allergies: 17:09 No Known Allergies; aa5 - PMHx: 17:09 Hypertension; aa5 - PSHx: 17:09 None; aa5 - Immunization history:: Adult Immunizations unknown. - Social history:: Smoking status: Patient denies any tobacco usage or history of. - Family history:: not pertinent. Screenin:11 Fall Risk None identified. ls4 19:19 Abuse screen: Denies threats or abuse. Denies injuries from another. Nutritional ls4 screening: No deficits noted. Tuberculosis screening: No symptoms or risk factors identified. Assessment: 17:11 General: Appears in no apparent distress. comfortable, Behavior is calm, cooperative. ls4 17:11 Pain: Complains of pain in forehead Pain currently is 5 out of 10 on a pain scale. ls4 Quality of pain is described as aching, dull. Neuro: Level of Consciousness is awake, alert, obeys commands, Oriented to person, place, time, situation, Manager Instrumentation are equal bilaterally Moves all extremities. Gait is steady, Speech is normal, Facial symmetry appears normal, Pupils are PERRLA, Cardiovascular: No deficits noted. Denies chest pain, diaphoresis, fatigue, lightheadedness, nausea, palpitations, shortness of breath, syncope, vomiting. Respiratory: Airway is patent Respiratory effort is even, unlabored, Respiratory pattern is regular, Denies cough, shortness of breath labored breathing, pain with respiration, pain with cough, pain with movement. GI: No deficits noted. No signs and/or symptoms were reported involving the gastrointestinal system. : No deficits noted. No signs and/or symptoms were reported regarding the genitourinary system. Derm: No deficits noted. No signs and/or symptoms reported regarding the dermatologic system. Musculoskeletal: No deficits noted. No signs and/or symptoms reported regarding the musculoskeletal system. Vital Signs: 17:10 BP 139 / 93; Pulse 69; Resp 18 S; Temp 98.3(O); Pulse Ox 99% on R/A; Weight 81.65 kg aa5 (R); Height 5 ft. 6 in. (167.64 cm) (R); Pain 5/10; 18:11 BP 134 / 78; Pulse 66; Resp 18; Temp 98.4(O); Pulse Ox 99% on R/A; Pain 0/10; ls4 19:19 BP 133 / 80; Pulse 62; Resp 16; Pulse Ox 99% on R/A; Pain 0/10; ls4 17:10 Body Mass Index 29.05 (81.65 kg, 167.64 cm) aa5 ED Course: 17:00 Patient arrived in ED. ag5 17:09 Triage completed. aa5 17:09 Arm band placed on. aa5 17:11 Patient has correct armband on for positive identification. Bed in low position. Call ls4 light in reach. Side rails up X 1. Adult w/ patient. 17:11 No provider procedures requiring assistance completed. Patient did not have IV access ls4 during this emergency room visit. 17:16 Kole Darden MD is Attending Physician. [facility] 17:30 Celine Gutiérrez, RN is Primary Nurse. ls4 17:43 Hima Mann MD is Referral Physician. tony 18:02 No apparent distress. Awaiting CT Scan. ls4 18:30 CT Head Brain wo Cont In Process Unspecified. EDMS Administered Medications: 18:02 Drug: predniSONE 60 mg Route: PO; ls4 18:22 Follow up: Response: No adverse reaction ls4 18:02 Drug: Valtrex 1000 mg Route: PO; ls4 18:22 Follow up: Response: No adverse reaction ls4 Outcome: 17:43 Discharge ordered by . tony 19:19 Patient left the ED. lp1 19:19 Discharged to home ambulatory, with family. ls4 19:19 Condition: good 19:19 Discharge instructions given to patient, family, Instructed on discharge instructions, follow up and referral plans. medication usage, Demonstrated understanding of instructions, follow-up care, medications, Prescriptions given X 1. Signatures: Dispatcher [employer] EDMS Kole Darden MD MD cha Calderon, Audri, RN RN aa5 Ashlie Dennis, RN RN lp1 Celine Gutiérrez, RN RN ls4 Nigel Sanchez [facility]
[2019-10-04] MEDS ORDERED: predniSONE 20 MG TAB ONE (18:04)
[2019-10-04] MEDS ORDERED: VALACYCLOVIR 500 MG TAB ONE (18:06)
--- NOTE | 2019-10-04 19:01 | RAD REPORT ---
EXAM DESCRIPTION: CT - Head Brain Wo Cont - 10/04/2019 6:31 pm CLINICAL HISTORY: Headache COMPARISON: 2019 TECHNIQUE: Computed axial tomography of the head was obtained. IV contrast was not requested. All CT scans are performed using dose optimization technique as appropriate and may include automated exposure control or mA/KV adjustment according to patient size. FINDINGS: An intracranial bleed is not seen . The ventricles are normal in caliber. No extra-axial fluid collection is noted. Fluid within the sinuses/ mastoids is not seen. IMPRESSION: No acute intracranial abnormality is seen. If patient's symptoms persist MRI of the bra in would be recommended.
[2019-10-04 19:23] VITALS: O2SAT 99
[2019-10-04 19:25] VITALS: TEMP 98.4
[2019-10-04 19:26] VITALS: BP 133/80
== END 2019-10-04 19:19 | disposition home or self-care (01) ==
LOC: ER 17:00
DX: G51.0 Bell's palsy (principal)
CPT/HCPCS: 70450; 99283; J7512

== ENCOUNTER 2019-10-13 01:22 | Emergency (ER) | payer BC ==
[2019-10-13] MEDS ORDERED: dexAMETHasone 10 MG/ML VIAL ONE (02:42)
[2019-10-13] MEDS ORDERED: KETOROLAC 30 MG/ML INJ ONE (02:43)
[2019-10-13 03:01] LABS: Absolute Lymphocytes (CBC) 2.7 K/uL (0.7-4.9); Basophils % 0.9 % (0-1.3); Hematocrit 49.1 % (39.6-49.0); Lymphocytes % 22.6 % (15.3-44.8); MPV 8.9 fL (7.6-11.3); RBC Red Blood Cell Count 5.37 M/uL (4.33-5.43)
[2019-10-13 03:47] LABS: Albumin 3.6 g/dL (3.4-5.0); Bilirubin Total 0.4 mg/dL (0.2-1.0); Protein, Total 7.7 g/dL (6.4-8.2)
[2019-10-13 03:48] LABS: Potassium 3.8 mmol/L (3.5-5.1)
[2019-10-13 03:52] LABS: Blood Morphology Comment NOT SEEN (NOT SEEN); Platelet Estimate ADEQ
--- NOTE | 2019-10-13 04:49 | ER ---
Nurse's Notes [facility] Name: Richard Valencia Age: 49 yrs Sex: Male : 1970 Arrival Date: 10/13/2019 Time: 01:26 Bed 5 Private MD: Diagnosis: Headache;Lucero's palsy;Elevated white blood cell count;Bandemia-2% Presentation: 10/12 01:32 Chief complaint: Spouse and/or significant other states: he woke up saying that his sg headache has just gotten worse, it probably started yesterday afternoon. Coronavirus screen: Proceed with normal triage. Ebola Screen: Patient negative for fever greater than or equal to 101.5 degrees Fahrenheit, and additional compatible Ebola Virus Disease symptoms Patient denies exposure to infectious person. Patient denies travel to an Ebola-affected area in the 21 days before illness onset. No symptoms or risks identified at this time. Initial Sepsis Screen: Does the patient meet any 2 criteria? No. Patient's initial sepsis screen is negative. Does the patient have a suspected source of infection? No. Patient's initial sepsis screen is negative. Risk Assessment: Do you want to hurt yourself or someone else? Patient reports no desire to harm self or others. Onset of symptoms was October 13, 2019. Care prior to arrival: None. Activity prior to arrival: None. Transition of care: patient was not received from another setting of care. 01:32 Method Of Arrival: Ambulatory sg 01:32 Acuity: GANESH 3 sg 01:32 Note he was seen and treated for [place] palsy, did not complete his valtrex medication sg as ordered. Triage Assessment: 01:45 General: Appears in no apparent distress. uncomfortable, Behavior is calm, cooperative, vc appropriate for age. Pain: Complains of pain in right parietal area, right side of the back of head, right occipital area, right ear and right base of the skull Pain currently is 8 out of 10 on a pain scale. at worst was 9 out of 10 on a pain scale. Quality of pain is described as throbbing, pulsating, Pain began 1 day ago. Also complains of dizziness. Neuro: Level of Consciousness is awake, alert, obeys commands, Oriented to person, place, time, situation, Appropriate for age Speech is normal, Facial droop on left, Facial symmetry: tongue is midline, Reports dizziness, headache occipital area, that is the "worst ever". 01:48 Headache History: The patient has had previous headaches and this one is more severe vc than previous episodes. Historical: - Allergies: 01:34 No Known Allergies; sg - PMHx: 01:34 Hypertension; [place] Palsy; sg - PSHx: 01:34 None; sg - Immunization history:: Adult Immunizations not up to date. - Social history:: Smoking status: Patient denies any tobacco usage or history of. - Family history:: not pertinent. Screenin:45 Abuse screen: Denies threats or abuse. Nutritional screening: No deficits noted. vc Tuberculosis screening: No symptoms or risk factors identified. Fall Risk None identified. Assessment: 01:55 General: Appears in no apparent distress. uncomfortable, Behavior is calm, cooperative, vc appropriate for age. Pain: Complains of pain in right base of the skull and right occipital area and right side of the back of head Pain does not radiate. Neuro: Level of Consciousness is awake, alert, obeys commands, Oriented to person, place, time, situation, Appropriate for age. Cardiovascular: Patient's skin is warm and dry. Respiratory: Respiratory effort is even, unlabored, Respiratory pattern is regular, symmetrical. GI: No signs and/or symptoms were reported involving the gastrointestinal system. : No signs and/or symptoms were reported regarding the genitourinary system. Derm: Skin temperature is warm. 02:55 Reassessment: Patient to CT via wheelchair. vc 03:20 Reassessment: Patient appears in no apparent distress at this time. Patient and/or vc family updated on plan of care and expected duration. Pain level reassessed. Patient back from CT via wheelchair. 04:00 Reassessment: Patient appears in no apparent distress at this time. Patient and/or vc family updated on plan of care and expected duration. Pain level reassessed. Patient is alert, oriented x 3, equal unlabored respirations, skin warm/dry/pink. 04:58 Reassessment: Patient appears in no apparent distress at this time. Patient and/or vc family updated on plan of care and expected duration. Pain level reassessed. Patient will be discharged after shot time. Vital Signs: 01:40 BP 145 / 91; Pulse 70; Pulse Ox 100% on R/A; vc 02:00 BP 141 / 77; Pulse 63; Resp 20; Temp 98; Pulse Ox 97% on R/A; Weight 81.65 kg; Height 5 vc ft. 6 in. (167.64 cm); 03:21 BP 144 / 93; Pulse 69; Resp 18; Pulse Ox 96% on R/A; vc 04:00 BP 124 / 86; Pulse 60; Resp 19; Pulse Ox 96% on R/A; vc 02:00 Body Mass Index 29.05 (81.65 kg, 167.64 cm) vc Mcdavid Coma Score: 02:30 Eye Response: spontaneous(4). Verbal Response: oriented(5). Motor Response: obeys tony commands(6). Total: 15. ED Course: 01:26 Patient arrived in ED. ag3 01:34 Triage completed. sg 01:34 Cait Diop, RN is Primary Nurse. vc 01:35 Arm band placed on. sg 01:49 Patient has correct armband on for positive identification. Bed in low position. Call vc light in reach. Side rails up X2. Adult w/ patient. Pulse ox on. NIBP on. Warm blanket given. 02:08 Kole Darden MD is Attending Physician. tony 02:33 Inserted saline lock: 20 gauge in left antecubital area, using aseptic technique. Blood oe collected. 03:29 CT Head Brain wo Cont In Process Unspecified. EDMS 03:31 CT Head Angio In Process Unspecified. EDMS 04:48 Hima Mann MD is Referral Physician. tony 05:15 No provider procedures requiring assistance completed. IV discontinued, intact, vc bleeding controlled, No redness/swelling at site. Pressure dressing applied. Administered Medications: 02:44 Drug: Decadron - Dexamethasone 10 mg Route: IVP; Site: left antecubital; vc 04:49 Follow up: Response: No adverse reaction; Pain is decreased vc 02:44 Drug: TORadol 30 mg Route: IVP; Site: left antecubital; vc 04:49 Follow up: Response: No adverse reaction; Pain is decreased vc 04:57 Drug: Rocephin 1 grams Route: IV; Rate: per protocol; Site: left antecubital; vc 05:03 Follow up: IV Status: Completed infusion; IV Intake: 20ml vc Intake: 05:03 IV: 20ml; Total: 20ml. vc Outcome: 04:48 Discharge ordered by . tony 05:15 Discharged to home ambulatory. vc 05:15 Condition: good 05:15 Discharge instructions given to patient, Instructed on discharge instructions, follow up and referral plans. the need for admit, medication usage, Demonstrated understanding of instructions, follow-up care, medications, Prescriptions given X 4. 05:16 Patient left the ED. vc Signatures: Dispatcher [employer] EDMS Kip Kelly, RN RN Kole Sherman MD MD cha Espinosa, Orlando oe Gomez, Alice ag3 Cait Diop RN RN vc
--- NOTE | 2019-10-13 04:49 | EDPHYS ---
Physician Documentation [facility] Name: Richard Valencia Age: 49 yrs Sex: Male : 1970 Arrival Date: 10/13/2019 Time: 01:26 Bed 5 Private MD: ED Physician Kole Darden HPI: 10/12 02:18 This 49 yrs old Male presents to ER via Ambulatory with complaints of Headache.[facility] 02:18 The patient complains of pain to the right temporal area, right occipital area, right tony ear and right base of the skull. The patient describes the headache as intermittent. Onset: The symptoms/episode began/occurred 2 day(s) ago. Associated signs and symptoms: The patient has no apparent associated signs or symptoms. Severity of symptoms: At its worst the pain was mild, in the emergency department the pain is unchanged. Headache History: Denies prior headaches. The symptoms are alleviated by nothing. the symptoms are aggravated by nothing. The patient has not experienced similar symptoms in the past. Historical: - Allergies: 01:34 No Known Allergies; sg - PMHx: 01:34 Hypertension; [place] Palsy; sg - PSHx: 01:34 None; sg - Immunization history:: Adult Immunizations not up to date. - Social history:: Smoking status: Patient denies any tobacco usage or history of. - Family history:: not pertinent. ROS: 02:18 Constitutional: Negative for fever, chills, and weight loss, Eyes: Negative for injury, tony pain, redness, and discharge, ENT: Negative for injury, pain, and discharge, Neck: Negative for injury, pain, and swelling, Cardiovascular: Negative for chest pain, palpitations, and edema, Respiratory: Negative for shortness of breath, cough, wheezing, and pleuritic chest pain, Abdomen/GI: Negative for abdominal pain, nausea, vomiting, diarrhea, and constipation, Back: Negative for injury and pain, : Negative for injury, bleeding, discharge, and swelling, MS/Extremity: Negative for injury and deformity, Skin: Negative for injury, rash, and discoloration, Psych: Negative for depression, anxiety, suicide ideation, homicidal ideation, and hallucinations, Allergy/Immunology: Negative for hives, rash, and allergies, Endocrine: Negative for neck swelling, polydipsia, polyuria, polyphagia, and marked weight changes, Hematologic/Lymphatic: Negative for swollen nodes, abnormal bleeding, and unusual bruising. 02:18 Neuro: Positive for headache. Exam: 02:18 Constitutional: This is a well developed, well nourished patient who is awake, alert, tony and in no acute distress. Eyes: Pupils equal round and reactive to light, extra-ocular motions intact. Lids and lashes normal. Conjunctiva and sclera are non-icteric and not injected. Cornea within normal limits. Periorbital areas with no swelling, redness, or edema. ENT: Nares patent. No nasal discharge, no septal abnormalities noted. Tympanic membranes are normal and external auditory canals are clear. Oropharynx with no redness, swelling, or masses, exudates, or evidence of obstruction, uvula midline. Mucous membranes moist. Neck: Trachea midline, no thyromegaly or masses palpated, and no cervical lymphadenopathy. Supple, full range of motion without nuchal rigidity, or vertebral point tenderness. No Meningismus. Chest/axilla: Normal chest wall appearance and motion. Nontender with no deformity. No lesions are appreciated. Cardiovascular: Regular rate and rhythm with a normal S1 and S2. No gallops, murmurs, or rubs. Normal PMI, no JVD. No pulse deficits. Respiratory: Lungs have equal breath sounds bilaterally, clear to auscultation and percussion. No rales, rhonchi or wheezes noted. No increased work of breathing, no retractions or nasal flaring. Abdomen/GI: Soft, non-tender, with normal bowel sounds. No distension or tympany. No guarding or rebound. No evidence of tenderness throughout. Back: No spinal tenderness. No costovertebral tenderness. Full range of motion. Male : Normal genitalia with no discharge or lesions. Skin: Warm, dry with normal turgor. Normal color with no rashes, no lesions, and no evidence of cellulitis. MS/ Extremity: Pulses equal, no cyanosis. Neurovascular intact. Full, normal range of motion. Neuro: Awake and alert, GCS 15, oriented to person, place, time, and situation. Cranial nerves II-XII grossly intact. Motor strength 5/5 in all extremities. Sensory grossly intact. Cerebellar exam normal. Normal gait. Psych: Awake, alert, with orientation to person, place and time. Behavior, mood, and affect are within normal limits. 02:18 Head/face: Noted is tenderness, that is moderate, of the right side of the back of head, right temporal area, right occipital area, right ear and right base of the skull. 02:31 ENT: TM's: are normal, no evidence of bulging, no dullness, no erythema, no fluid tony levels, no hemotympanum, no rupture, normal bony landmarks, normal mobility, no acute changes, Examination of the other ear shows no obvious abnormality, normal. 02:31 Neck: ROM/movement: is normal, no acute changes, Meningeal signs: are not present, Kernig's sign is negative, Brudzinski's sign is negative. Vital Signs: 01:40 BP 145 / 91; Pulse 70; Pulse Ox 100% on R/A; vc 02:00 BP 141 / 77; Pulse 63; Resp 20; Temp 98; Pulse Ox 97% on R/A; Weight 81.65 kg; Height 5 vc ft. 6 in. (167.64 cm); 03:21 BP 144 / 93; Pulse 69; Resp 18; Pulse Ox 96% on R/A; vc 04:00 BP 124 / 86; Pulse 60; Resp 19; Pulse Ox 96% on R/A; vc 02:00 Body Mass Index 29.05 (81.65 kg, 167.64 cm) vc Laurier Coma Score: 02:30 Eye Response: spontaneous(4). Verbal Response: oriented(5). Motor Response: obeys tony commands(6). Total: 15. MDM: 02:08 Patient medically screened. tony 02:21 Data reviewed: vital signs, nurses notes, lab test result(s), radiologic studies, CT tony scan. 02:30 Differential diagnosis: herpes zoster, intracerebral hemorrhage, neoplasm, subarachnoid tony bleed, temporal arteritis, tension headache, trigeminal neuralgia. Data interpreted: senior applications engineer: rate is 70 beats/min, Pulse oximetry: on is 100 %. Counseling: I had a detailed discussion with the patient and/or guardian regarding: the historical points, exam findings, and any diagnostic results supporting the discharge/admit diagnosis, lab results, radiology results, the need for outpatient follow up, for definitive care, a neurologist. 04:46 Medication response: Toradol markedly relieved the patient's pain. tony 04:47 ED course: ct head and cta neg for acute findings. [facility] 10/12 02:18 Order name: CBC with Diff [facility] 10/12 02:18 Order name: Comprehensive Metabolic Panel; Complete Time: 04:45 tony 10/12 02:18 Order name: CT Head Brain wo Cont [facility] 10/12 02:42 Order name: Sed Rate; Complete Time: 03:23 sg 10/12 03:04 Order name: Manual Differential EDMS 10/12 04:28 Order name: CREATININE WHOLE BLOOD; Complete Time: 04:45 EDMS 10/12 02:26 Order name: CT Head Angio tony Administered Medications: 02:44 Drug: Decadron - Dexamethasone 10 mg Route: IVP; Site: left antecubital; vc 04:49 Follow up: Response: No adverse reaction; Pain is decreased vc 02:44 Drug: TORadol 30 mg Route: IVP; Site: left antecubital; vc 04:49 Follow up: Response: No adverse reaction; Pain is decreased vc 04:57 Drug: Rocephin 1 grams Route: IV; Rate: per protocol; Site: left antecubital; vc 05:03 Follow up: IV Status: Completed infusion; IV Intake: 20ml vc Disposition: 10/13/19 04:48 Discharged to Home. Impression: Headache, Lucero's palsy, Elevated white blood cell count, Bandemia - 2%. - Condition is Stable. - Discharge Instructions: [place]ero Palsy, Adult, General Headache Without Cause, General Headache Without Cause, [id number], Leukocytosis. - Prescriptions for dexamethasone 2 mg Oral tablet - take 1 tablet by ORAL route 2 times per day; 10 tablet. gabapentin 300 mg Oral capsule - take 1 capsule by ORAL route 2 times per day; 20 capsule. Fioricet with Codeine 50- 325-40-30 mg Oral capsule - take 1 capsule by ORAL route every 4 hours as needed not to exceed 6 capsules per 24hrs; 20 capsule. Artificial Tears - instill 1 application by OPHTHALMIC route 6 times per day; 10 milliliter. Augmentin 875- 125 mg Oral Tablet - take 1 tablet by ORAL route every 12 hours for 10 days; 20 tablet. - SBAR form, Medication Reconciliation Form, Thank You Letter, Antibiotic Education, Prescription Opioid Use form. - Follow up: Private Physician; When: 2 - 3 days; Reason: Recheck today's complaints, Continuance of care, Re-evaluation by your physician. Follow up: Hima Mann; When: 5 - 6 days; Reason: Recheck today's complaints, Continuance of care, Re-evaluation by your physician. - Problem is new. - Symptoms have improved. Signatures: Dispatcher [employer] EDKip Guevara RN RN sg Anderson, Corey, MD MD cha Calcote, Vanessa, RN RN vc Corrections: (The following items were deleted from the chart) 05:16 04:48 10/13/2019 04:48 Discharged to Home. Impression: Headache; Lucero's palsy; Elevated vc white blood cell count; Bandemia - 2%. Condition is Stable. Discharge Instructions: [place] Palsy, Adult, General Headache Without Cause, General Headache Without Cause, [id number]-[id number]. Prescriptions for dexamethasone 2 mg Oral tablet - take 1 tablet by ORAL route 2 times per day; 10 tablet, gabapentin 300 mg Oral capsule - take 1 capsule by ORAL route 2 times per day; 20 capsule, Fioricet with Codeine 73-100-27-30 mg Oral capsule - take 1 capsule by ORAL route every 4 hours as needed not to exceed 6 capsules per 24hrs; 20 capsule, Artificial Tears - instill 1 application by OPHTHALMIC route 6 times per day; 10 milliliter. and Forms are SBAR form, Medication Reconciliation Form, Thank You Letter, Antibiotic Education, Prescription Opioid Use. Follow up: Private Physician; When: 2 - 3 days; Reason: Recheck today's complaints, Continuance of care, Re-evaluation by your physician. Follow up: Hima Mann; When: 5 - 6 days; Reason: Recheck today's complaints, Continuance of care, Re-evaluation by your physician. Problem is new. Symptoms have improved. tony
[2019-10-13] MEDS ORDERED: CEFTRIAXONE/SWI 1gm 1 GM/10 ML SYR ONE (04:58)
[2019-10-13 05:23] VITALS: TEMP 98
[2019-10-13 05:25] VITALS: O2SAT 96
[2019-10-13 05:26] VITALS: BP 124/86
--- NOTE | 2019-10-13 09:44 | RAD REPORT ---
EXAM DESCRIPTION: CT - Head Brain Wo Cont - 10/13/2019 3:59 am CLINICAL HISTORY: Head Brain Wo Cont CLINICAL HISTORY: Headache;Lucero's Palsy COMPARISON: Head CT October 04, 2019. TECHNIQUE: Multiple helical axial tomographic images were obtained of the head without intravenous c ontrast. This exam was performed according to our departmental dose-optimization program, which inclu laura automated exposure control, adjustment of the mA and/or kV according to patient size and/or use o f iterative reconstruction technique. FINDINGS: There is no acute intracranial hemorrhage. No mass. No midline shift. No ventriculomegaly. Parisi-white matter differentiation is maintained. Paranasal sinuses are clear. Mastoid air cells and middle ear spaces are clear. Orbits and orbital co ntents are unremarkable. Osseous structures are unremarkable. Surrounding soft tissues are unremarkable. IMPRESSION: No acute intracranial process. Electronically signed by: Celestine Burnett MD 10/13/2019 3:46 AM CDT Due to temporary technical issues with the PACS/Fluency reporting system, reports are being signed by the in house radiologist without review as a courtesy to ensure prompt reporting. The interpreting r adiologist is fully responsible for the content of the report.
--- NOTE | 2019-10-13 09:45 | RAD REPORT ---
EXAM DESCRIPTION: CTHead angio10/13/2019 3:59 am CLINICAL HISTORY: HEADACHE COMPARISON: CT head without contrast 10/04/2019 TECHNIQUE: Head/brain axial images acquired without and with IV contrast. Coronal and sagittal CTA M IPs and MPRs created. Exam performed according to departmental dose-optimization program which includ es automated exposure control, adjustment of mA and/or kV according to patient size, and/or use of it erative reconstruction technique. FINDINGS: No midline shift, mass effect, intracranial hemorrhage, or hydrocephalus. Brain parenchyma unremarkable. Small polyp or mucous retention cyst in left maxillary sinus. Mastoid air cells clear. No skull fracture or significant skull lesion. Both intracranial vertebral, basilar, and both posterior cerebral arteries unremarkable. Both intracranial internal carotid, both middle cerebral, and both anterior cerebral arteries unremar kable. No evidence of large intracranial arterial occlusion, aneurysm, or AVM. IMPRESSION: Unremarkable CTA head without and with contrast. Electronically signed by: Keven Craig MD 10/13/2019 3:51 AM CDT Due to temporary technical issues with the PACS/Fluency reporting system, reports are being signed by the in house radiologist without review as a courtesy to ensure prompt reporting. The interpreting r adiologist is fully responsible for the content of the report.
== END 2019-10-13 05:16 | disposition home or self-care (01) ==
LOC: ER 01:22
DX: R51 Headache (principal); D72.825 Bandemia; G51.0 Bell's palsy; I10 Essential (primary) hypertension
CPT/HCPCS: 85025; 36415; 82565; 85652; 80053; 70450; 70496; 96375; 96374; 99284; Q9967; J1100; J0696

== ENCOUNTER 2020-11-20 07:07 | Emergency (ER) | payer BC, OTHER ==
--- OUTSIDE RECORDS SUMMARY | 2020-11-20 07:10 | XMS REPORT | Continuity of Care Document ---
:1970 Author Organization [facility] t Address [address] [place] [address] Care Team Providers Name Role Phone Robbin RN Attending Clinician Unavailable Only, Test Attending Clinician Unavailable Problems This patient has no known problems. Allergies, Adverse Reactions, Alerts This patient has no known allergies or adverse reactions. Medications This patient has no known medications. Procedures This patient has no known procedures. Encounters Start End Encounter Admission Attending Care Care Encounter Source Date/Time Date/Time Type Type Clinicians Facility Department ID 2020-08-12 2020-08-12 Telephone JORGE Siegel [id number] 00:00:00 00:00:[id number] [facility] [id number] 2020-08-11 2020-08-11 Laboratory Only, [facility] [id number] 14:46:47 15:01:47 Only Test Erick [id number] [facility] [id number] [place] [id number] 2020-02-03 2020-02-03 Outpatient [facility] [id number] [facility]00[facility]00 [facility] Results This patient has no known results.
[2020-11-20] MEDS ORDERED: IBUPROFEN 200 MG TAB PO ONE (08:26)
--- NOTE | 2020-11-20 08:33 | RAD REPORT ---
EXAM DESCRIPTION: RAD - Chest Single View - 11/20/2020 8:07 am CLINICAL HISTORY: COUGH COMPARISON: Chest Pa And Lat (2 Views) dated 09/17/2018; Chest Single View dated 03/17/2018; Chest Si ngle View dated 12/19/2016; Chest Pa And Lat (2 Views) dated 05/06/2016 FINDINGS: Ill-defined airspace opacities within the mid lung and lung bases bilaterally. These are m ild. The heart size is within normal limits.No acute osseous abnormality. No significant pleural effu sions or pneumothorax. IMPRESSION: Mild bilateral ill-defined airspace opacities could reflect pneumonia.
--- NOTE | 2020-11-20 09:55 | ER ---
Nurse's Notes [facility] Name: Richard Valencia Age: 50 yrs Sex: Male : 1970 Arrival Date: 11/20/2020 Time: 07:14 Bed 12 Private MD: Diagnosis: Pneumonia due to SARS-associated coronavirus Presentation: 11/20 07:30 Chief complaint: Patient states: productive cough x years , and decreased appetite sv started this year. Tylenol taken this morning. Coronavirus screen: Client denies travel out of the [place] in the last 14 days. At this time, the client does not indicate any symptoms associated with coronavirus-19. Ebola Screen: No symptoms or risks identified at this time. Risk Assessment: Do you want to hurt yourself or someone else? Patient reports no desire to harm self or others. Onset of symptoms is unknown. 07:30 Method Of Arrival: Ambulatory sv 07:30 Acuity: GANESH 3 sv 07:32 Initial Sepsis Screen: Does the patient meet any 2 criteria? No. Patient's initial sv sepsis screen is negative. Does the patient have a suspected source of infection? No. Patient's initial sepsis screen is negative. Triage Assessment: 07:34 General: Appears in no apparent distress. comfortable, Behavior is calm, cooperative, sv appropriate for age. Pain: Denies pain. Neuro: Level of Consciousness is awake, alert, obeys commands, Oriented to person, place, time, situation, Gait is steady. Respiratory: Reports cough that is productive, Airway is patent Respiratory effort is even, unlabored, Respiratory pattern is regular, symmetrical. 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 - Social history:: Smoking status: Patient denies any tobacco usage or history of. Screenin:59 Abuse screen: Denies threats or abuse. Denies injuries from another. Nutritional iw screening: No deficits noted. Tuberculosis screening: No symptoms or risk factors identified. Fall Risk None identified. Assessment: 07:59 General: Appears in no apparent distress. comfortable, Behavior is calm, cooperative. iw General: Reports feeling ill for fatigue for. Neuro: Level of Consciousness is awake, alert, obeys commands, Oriented to person, place, time, situation, Moves all extremities. Full function. Cardiovascular: Patient's skin is warm and dry. Respiratory: Reports cough that is productive, Respiratory effort is even, unlabored, Respiratory pattern is regular, symmetrical. Respiratory: Breath sounds are clear bilaterally. GI: Abdomen is flat, non-distended, Abd is soft and non tender X 4 quads. Derm: Skin is intact, is healthy with good turgor. Musculoskeletal: Range of motion: intact in all extremities. 08:57 Reassessment: Patient appears in no apparent distress at this time. Patient and/or iw family updated on plan of care and expected duration. Pain level reassessed. Patient is alert, oriented x 3, equal unlabored respirations, skin warm/dry/pink. Vital Signs: 07:32 BP 134 / 108; Pulse 106; Resp 16; Temp 100.1; Pulse Ox 99% ; Weight 77.11 kg; Height 5 sv ft. 6 in. (167.64 cm); 10:13 BP 145 / 97; Pulse 100; Resp 17; Temp 97.3(TE); Pulse Ox 97% on R/A; mh5 07:32 Body Mass Index 27.44 (77.11 kg, 167.64 cm) sv ED Course: 07:14 Patient arrived in ED. rg4 07:32 Triage completed. sv 07:32 Arm band placed on. sv 07:58 Evelyn Sen, RN is Primary Nurse. iw 08:00 Kerwin Hercules PA is PHCP. jr8 08:00 Glenn Leigh MD is Attending Physician. jr8 08:00 Patient has correct armband on for positive identification. iw 08:07 Chest Single View In Process Unspecified. EDMS 09:05 COVID-19 : Document "Date of Symptom Onset" if Symptomatic. Sent. sv 10:20 No provider procedures requiring assistance completed. Patient did not have IV access iw during this emergency room visit. Administered Medications: 08:15 Drug: Ibuprofen 600 mg Route: PO; iw 08:40 Follow up: Response: No adverse reaction iw Outcome: 09:55 Discharge ordered by . jr8 10:20 Discharged to home ambulatory, with family. iw 10:20 Condition: good 10:20 Discharge instructions given to patient, family, Instructed on discharge instructions, follow up and referral plans. medication usage, Demonstrated understanding of instructions, follow-up care, medications, Prescriptions given X 2. 10:21 Patient left the ED. iw Signatures: Dispatcher [employer] Rosalie Arteaga RN RN Evelyn Sen RN RN iw Kerwin Hercules PA PA jr8 Meghana Suarez4 Jeannette Timmons 5 Corrections: (The following items were deleted from the chart) 07:34 07:30 Chief complaint: Patient states: productive cough x years , and decreased sv appetite started this year. sv 07:35 07:30 Acuity: GANESH 4 sv sv 07:35 07:32 Resp 16bpm; Pulse Ox 99%; Temp 100.1F; 77.11 kg; Height 5 ft. 6 in.; BMI: 27.4; svsv 18:58 10:20 Discharge instructions given to patient, family, Instructed on discharge iw instructions, follow up and referral plans. medication usage, Demonstrated understanding of instructions, follow-up care, medications, Prescriptions given X iw
--- NOTE | 2020-11-20 09:55 | EDPHYS ---
Physician Documentation [facility] Name: Richard Valencia Age: 50 yrs Sex: Male : 1970 Arrival Date: 11/20/2020 Time: 07:14 Bed 12 Private MD: ED Physician Glenn Leigh HPI: 11/20 09:00 This 50 yrs old Male presents to ER via Ambulatory with complaints of Cough. jr8 09:00 The patient or guardian reports cough, that is intermittent, described as moderate, jr8 with no sputum. Onset: The symptoms/episode began/occurred acutely, 3 day(s) ago. Severity of symptoms: At their worst the symptoms were moderate, in the emergency department the symptoms are unchanged. Modifying factors: The symptoms are alleviated by nothing, the symptoms are aggravated by nothing. Associated signs and symptoms: Pertinent positives: nausea. It is unknown whether or not the patient has had similar symptoms in the past. The patient has not recently seen a physician. 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 - Social history:: Smoking status: Patient denies any tobacco usage or history of. ROS: 09:00 Eyes: Negative for injury, pain, redness, and discharge, ENT: Negative for injury, jr8 pain, and discharge, Neck: Negative for injury, pain, and swelling, Cardiovascular: Negative for chest pain, palpitations, and edema, Back: Negative for injury and pain, MS/Extremity: Negative for injury and deformity, Skin: Negative for injury, rash, and discoloration, Neuro: Negative for headache, weakness, numbness, tingling, and seizure. 09:00 Constitutional: Positive for fever. 09:00 Respiratory: Positive for cough, Negative for shortness of breath, sputum production, wheezing. 09:00 Abdomen/GI: Positive for nausea. Exam: 09:00 Constitutional: This is a well developed, well nourished patient who is awake, alert, jr8 and in no acute distress. ENT: Nares patent. No nasal discharge, no septal abnormalities noted. Tympanic membranes are normal and external auditory canals are clear. Oropharynx with no redness, swelling, or masses, exudates, or evidence of obstruction, uvula midline. Mucous membranes moist. Neck: Trachea midline, no thyromegaly or masses palpated, and no cervical lymphadenopathy. Supple, full range of motion without nuchal rigidity, or vertebral point tenderness. No Meningismus. Cardiovascular: Regular rate and rhythm with a normal S1 and S2. No gallops, murmurs, or rubs. Normal PMI, no JVD. No pulse deficits. Respiratory: Lungs have equal breath sounds bilaterally, clear to auscultation and percussion. No rales, rhonchi or wheezes noted. No increased work of breathing, no retractions or nasal flaring. Abdomen/GI: Soft, non-tender, with normal bowel sounds. No distension or tympany. No guarding or rebound. No evidence of tenderness throughout. Back: No spinal tenderness. No costovertebral tenderness. Full range of motion. Skin: Warm, dry with normal turgor. Normal color with no rashes, no lesions, and no evidence of cellulitis. MS/ Extremity: Pulses equal, no cyanosis. Neurovascular intact. Full, normal range of motion. Neuro: Awake and alert, GCS 15, oriented to person, place, time, and situation. Cranial nerves II-XII grossly intact. Motor strength 5/5 in all extremities. Sensory grossly intact. Vital Signs: 07:32 BP 134 / 108; Pulse 106; Resp 16; Temp 100.1; Pulse Ox 99% ; Weight 77.11 kg; Height 5 sv ft. 6 in. (167.64 cm); 10:13 BP 145 / 97; Pulse 100; Resp 17; Temp 97.3(TE); Pulse Ox 97% on R/A; mh5 07:32 Body Mass Index 27.44 (77.11 kg, 167.64 cm) sv MDM: 08:06 Patient medically screened. jr8 09:54 Data reviewed: vital signs, nurses notes, lab test result(s), radiologic studies, plain jr8 films. Data interpreted: Pulse oximetry: on room air is 99 %. Interpretation: normal. Counseling: I had a detailed discussion with the patient and/or guardian regarding: the historical points, exam findings, and any diagnostic results supporting the discharge/admit diagnosis, lab results, radiology results, the need for outpatient follow up, a family practitioner, to return to the emergency department if symptoms worsen or persist or if there are any questions or concerns that arise at home. 11/20 08:01 Order name: COVID-19 : Document "Date of Symptom Onset" if Symptomatic. jr8 11/20 07:58 Order name: Chest Single View; Complete Time: 08:33 EDMS 11/20 09:53 Order name: SARS-COV-2 RT PCR; Complete Time: 09:54 EDMS Administered Medications: 08:15 Drug: Ibuprofen 600 mg Route: PO; iw 08:40 Follow up: Response: No adverse reaction iw Disposition: 10:47 Co-signature as Attending Physician, Glenn Leigh MD. rn Disposition Summary: 11/20/20 09:55 Discharge Ordered Location: Home jr8 Problem: new jr8 Symptoms: are unchanged jr8 Condition: Stable jr8 Diagnosis - Pneumonia due to SARS-associated coronavirus jr8 Followup: jr8 - With: Private Physician - When: 1 week - Reason: Recheck today's complaints, Continuance of care, Re-evaluation by your physician Discharge Instructions: - Discharge Summary Sheet jr8 - COVID-19 jr8 Forms: - Medication Reconciliation Form jr8 - Thank You Letter jr8 - Antibiotic Education jr8 - Prescription Opioid Use jr8 Prescriptions: - ivermectin 3 mg Oral tablet - take 4 tablet by ORAL route once daily for 5 days; 20 tablet; Refills: 0, jr8 Product Selection Permitted - promethazine-DM 6.25-15 mg/5 mL Oral syrup - take 5 milliliter by ORAL route every 4-6 hours as needed, not to exceed 30 mL jr8 in 24 hours; 100 milliliter; Refills: 0, Product Selection Permitted Signatures: Dispatcher [employer] EDMS Rosalie Negrete RN Evelyn Kumar RN RN iw Nieto, Roman, MD MD rn Roszak, Josh, PA PA jr8 Corrections: (The following items were deleted from the chart) 07:58 07:37 Chest Pa And Lat (2 Views)+RAD.RAD.[email or web address] ordered. EDMS EDMS 08:45 08:02 CORONAVIRUS ordered. EDMS EDMS
[2020-11-20 10:31] VITALS: BP 145/97; TEMP 97.3; O2SAT 97
== END 2020-11-20 10:21 | disposition home or self-care (01) ==
LOC: ER 07:07
DX: U07.1 COVID-19 (principal); J12.82 Pneumonia due to coronavirus disease 2019; I10 Essential (primary) hypertension
CPT/HCPCS: 71045; 99284; U0003

== ENCOUNTER 2020-11-23 03:49 | Inpatient (IN) | payer OTHER ==
--- OUTSIDE RECORDS SUMMARY | 2020-11-23 03:51 | XMS REPORT | Continuity of Care Document ---
:1970 Author Organization [facility] t Address [address] [place] [address] Care Team Providers Name Role Phone Robbin [...] Department ID 2020-08-12 2020-08-12 Telephone JORGE Siegel [id number] 00:00:00 00:00:00 Amna MINAYA [id number] [facility] [id number] 2020-08-11 2020-08-11 Laboratory Only, [facility] [id number] 14:46:47 15:01:47 Only Test Erick [id number] [place] [id number] [place] [id number] 2020-02-03 2020-02-03 Outpatient [facility] [id number] [facility] 00:00:00 00:00:00 [facility] Results This patient has no known results.
[2020-11-23 05:11] LABS: Basophils % 0.5 % (0-1.3); Hematocrit 44.4 % (39.6-49.0); Lymphocytes % 7.9 % (15.3-44.8); MPV 8.7 fL (7.6-11.3); RBC Red Blood Cell Count 5.01 M/uL (4.33-5.43)
[2020-11-23] MEDS ORDERED: CEFTRIAXONE 1000 MG/VIAL ONE (05:21)
[2020-11-23] MEDS ORDERED: FAMOTIDINE 20 MG/2 ML VIAL IV ONE (05:21)
[2020-11-23] MEDS ORDERED: AZITHROMYCIN 500 MG INJ IVPB ONE (05:21)
[2020-11-23] MEDS ORDERED: ASPIRIN 81 MG CHEWABLE TABLET ONE (05:21)
[2020-11-23] MEDS ORDERED: NA CHLORIDE 0.9% 1,000 ML ONE (05:21)
[2020-11-23] MEDS ORDERED: NA CHLORIDE 0.9% 250 ML ONE (05:21)
[2020-11-23] MEDS ORDERED: dexAMETHasone 10 MG/ML VIAL ONE (05:21)
[2020-11-23 05:22] LABS: Protime INR 1.18
[2020-11-23 05:37] LABS: ALT/SGPT 75 U/L (12-78); AST/SGOT 62 U/L (15-37); Albumin 2.9 g/dL (3.4-5.0); Alkaline Phosphatase 66 U/L (45-117); BUN Blood Urea Nitrogen 8 mg/dL (7-18); Bicarbonate 27 mmol/L (21-32); Bilirubin Direct 0.4 mg/dL (0-0.2); Ferritin 1875.1 ng/mL (26-388); Glucose Level 126 mg/dL (74-106); Magnesium 2.3 mg/dL (1.8-2.4); Potassium 3.5 mmol/L (3.5-5.1); Protein, Total 7.9 g/dL (6.4-8.2); Sodium Level 135 mmol/L (136-145); Troponin (Emerg Dept Use Only) < 0.02 ng/mL (0.0-0.045)
[2020-11-23 05:39] LABS: NT PRO-BNP < 5 pg/mL (<125)
--- NOTE | 2020-11-23 05:59 | EDPHYS ---
Physician Documentation [facility] Name: Richard Valencia Age: 50 yrs Sex: Male : 1970 Arrival Date: 11/23/2020 Time: 03:52 Bed 2 Private MD: ED Physician Kole Darden HPI: 11/23 04:42 This 50 yrs old Male presents to ER via Ambulatory with complaints of Doesn't tony Feel Right. 04:42 The patient has shortness of breath at rest, with light activity. Onset: The tony symptoms/episode began/occurred 5 day(s) ago. Duration: The symptoms are continuous, and are steadily getting worse. The patient's shortness of breath is aggravated by coughing, drinking, supine position, talking, walking, is alleviated by elevating head, nebulizer treatment, pursed lip breathing, rest, sitting up, application of supplemental oxygen. The patient or guardian reports cough, difficulty breathing, flu symptoms. Modifying factors: The symptoms are alleviated by changing position, elevating head, remaining still, the symptoms are aggravated by activity, lying flat, talking. Associated signs and symptoms: Pertinent positives: non-productive cough, dizziness, nausea, vomiting. Severity of symptoms: At their worst the symptoms were mild Pain is currently a 2 / 10. The patient or guardian reports airway noise. Historical: - Allergies: 04:31 No Known Allergies; bb - Home Meds: 04:31 atenolol 50 mg Oral tab 1 tab once daily [Active]; bb - PMHx: 04:31 bells palsy; Hypertension; bb - PSHx: 04:31 None; bb - Immunization history:: Adult Immunizations up to date. - Social history:: Smoking status: Patient denies any tobacco usage or history of. ROS: 04:44 Constitutional: Negative for fever, chills, and weight loss, Eyes: Negative for injury, tony pain, redness, and discharge, ENT: Negative for injury, pain, and discharge, Neck: Negative for injury, pain, and swelling, Cardiovascular: Negative for chest pain, palpitations, and edema, Abdomen/GI: Negative for abdominal pain, nausea, vomiting, diarrhea, and constipation, Back: Negative for injury and pain, : Negative for injury, bleeding, discharge, and swelling, MS/Extremity: Negative for injury and deformity, Skin: Negative for injury, rash, and discoloration, Neuro: Negative for headache, weakness, numbness, tingling, and seizure, Psych: Negative for depression, anxiety, suicide ideation, homicidal ideation, and hallucinations, Allergy/Immunology: Negative for hives, rash, and allergies, Endocrine: Negative for neck swelling, polydipsia, polyuria, polyphagia, and marked weight changes, Hematologic/Lymphatic: Negative for swollen nodes, abnormal bleeding, and unusual bruising. 04:44 Respiratory: Positive for cough, shortness of breath, wheezing, inspiratory, expiratory. 04:44 MS/extremity: Negative for acute changes. Exam: 04:44 Constitutional: This is a well developed, well nourished patient who is awake, alert, tony and in no acute distress. Head/Face: Normocephalic, atraumatic. Eyes: Pupils equal round and reactive to light, extra-ocular motions intact. Lids and lashes normal. Conjunctiva and sclera are non-icteric and not injected. Cornea within normal limits. Periorbital areas with no swelling, redness, or edema. ENT: Nares patent. No nasal discharge, no septal abnormalities noted. Tympanic membranes are normal and external auditory canals are clear. Oropharynx with no redness, swelling, or masses, exudates, or evidence of obstruction, uvula midline. Mucous membranes moist. Neck: Trachea midline, no thyromegaly or masses palpated, and no cervical lymphadenopathy. Supple, full range of motion without nuchal rigidity, or vertebral point tenderness. No Meningismus. Chest/axilla: Normal chest wall appearance and motion. Nontender with no deformity. No lesions are appreciated. Cardiovascular: Regular rate and rhythm with a normal S1 and S2. No gallops, murmurs, or rubs. Normal PMI, no JVD. No pulse deficits. Respiratory: Lungs have equal breath sounds bilaterally, clear to auscultation and percussion. No rales, rhonchi or wheezes noted. No increased work of breathing, no retractions or nasal flaring. Abdomen/GI: Soft, non-tender, with normal bowel sounds. No distension or tympany. No guarding or rebound. No evidence of tenderness throughout. Back: No spinal tenderness. No costovertebral tenderness. Full range of motion. Male : Normal genitalia with no discharge or lesions. Skin: Warm, dry with normal turgor. Normal color with no rashes, no lesions, and no evidence of cellulitis. MS/ Extremity: Pulses equal, no cyanosis. Neurovascular intact. Full, normal range of motion. Neuro: Awake and alert, GCS 15, oriented to person, place, time, and situation. Cranial nerves II-XII grossly intact. Motor strength 5/5 in all extremities. Sensory grossly intact. Cerebellar exam normal. Normal gait. Psych: Awake, alert, with orientation to person, place and time. Behavior, mood, and affect are within normal limits. 05:32 ECG was reviewed by the Attending Physician. [facility] Vital Signs: 04:29 BP 130 / 90; Pulse 105; Resp 28 S; Temp 98.8(O); Pulse Ox 98% on R/A; Weight 77.11 kg bb (R); Height 5 ft. 6 in. (167.64 cm) (R); Pain 0/10; 05:44 Pulse Ox 87% on R/A; ea 19:32 BP 146 / 98; Pulse 84; Resp 29; Temp 98; Pulse Ox 93% on 4 lpm NC; ea 04:29 Body Mass Index 27.44 (77.11 kg, 167.64 cm) bb 05:44 pt placed on O2 at 3 L per nasal cannula ea MDM: 04:34 Patient medically screened. [facility] 04:45 Differential diagnosis: Anemia asthma, Bronchitis CHF exacerbation, Chronic Obstructive tony Pulmonary Disease bronchitis, flu, URI. Antibiotic administration: The patient is discharged and will get outpatient antibiotics. The patient's Wells Deep Vein Thrombosis Score was calculated as follows: Total Score: 0-2 Pts- Low Risk. Differential Diagnosis: Bronchitis Influenza Upper Respiratory Infection Sinusitis Pharyngitis Asthma Exacerbation Viral Syndrome Pneumonia. The patient's pulmonary embolism risk score was calculated as follows: the patients heart rate is greater than 100 beats per minute (1.5 Pts) Total Score: 0-2 points. This patient was found to be at low risk for a pulmonary embolism by using the Well's assessment criteria. Immunization status:. Data reviewed: vital signs, nurses notes, lab test result(s), EKG, radiologic studies. Data interpreted: security monitor: rate is 105 beats/min, rhythm is regular, Pulse oximetry: on room air is 98 %. 11/23 04:41 Order name: Basic Metabolic Panel [facility] 11/23 04:41 Order name: CBC with Diff; Complete Time: 05:23 [facility] 11/23 04:41 Order name: LFT's; Complete Time: 06:14 [facility] 11/23 04:41 Order name: Magnesium; Complete Time: 06:14 [facility] 11/23 04:41 Order name: NT PRO-BNP; Complete Time: 06:14 [facility] 11/23 04:41 Order name: PT-INR; Complete Time: 05:23 [facility] 11/23 04:41 Order name: Troponin (emerg Dept Use Only); Complete Time: 06:14 [facility] 11/23 04:41 Order name: XRAY Chest (1 view) [facility] 11/23 04:41 Order name: CT Chest For PE Angio [facility] 11/23 04:41 Order name: Ferritin; Complete Time: 06:14 [facility] 11/23 04:41 Order name: CRP; Complete Time: 06:14 [facility] 11/23 04:41 Order name: Basic Metabolic Panel; Complete Time: 06:14 ED[facility] 11/23 16:05 Order name: Blood Culture [facility] 11/23 04:41 Order name: EKG; Complete Time: 04:42 [facility] 11/23 04:41 Order name: Cardiac monitoring; Complete Time: 05:13 [facility] 11/23 04:41 Order name: EKG - Nurse/Tech; Complete Time: 05:33 [facility] 11/23 04:41 Order name: IV Saline Lock; Complete Time: 05:13 [facility] 11/23 04:41 Order name: Labs collected and sent; Complete Time: 05:13 [facility] 11/23 04:41 Order name: O2 Per Protocol; Complete Time: 05:13 [facility] 11/23 04:41 Order name: O2 Sat Monitoring; Complete Time: 05:13 [facility] EC:32 Rate is 105 beats/min. Rhythm is regular. QRS [place] is Normal. OR interval is normal. [facility] QRS interval is normal. QT interval is normal. No Q waves. T waves are Inverted in leads III, aVF. No ST changes noted. Clinical impression: NSR w/ Non-specific ST/T Changes. Interpreted by me. Reviewed by me. Administered Medications: 05:12 Drug: Zithromax (azithromycin) 500 mg Route: IVPB; Infused Over: 1 hrs; Site: left ea antecubital; 06:12 Follow up: Response: No adverse reaction; IV Status: Completed infusion; IV Intake: jb4 250ml 05:12 Drug: Aspirin 81 mg Route: PO; ea 06:39 Follow up: Response: No adverse reaction jb4 05:12 Drug: Pepcid (famotidine) 20 mg Route: IVP; Site: left antecubital; ea 06:39 Follow up: Response: No adverse reaction jb4 05:13 Drug: NS 0.9% 1000 ml Route: IV; Rate: 125 ml/hr; Site: left antecubital; ea 06:39 Follow up: Response: No adverse reaction; IV Status: Infusion continued upon admission jb4 05:13 Drug: Decadron - Dexamethasone 10 mg Route: IVP; Site: left antecubital; ea 05:45 Follow up: Response: No adverse reaction jb4 05:13 Drug: Rocephin (cefTRIAXone) 1 grams Route: IV; Rate: per protocol; Site: right ea antecubital; 05:20 Follow up: Response: No adverse reaction; IV Status: Completed infusion jb4 Disposition Summary: 11/23/20 05:58 Hospitalization Ordered Hospitalization Status: Inpatient Admission tony Provider: Judd Cardona cha Condition: Fair tony Problem: new tony Symptoms: have worsened tony Bed/Room Type: Standard tony Location: Telemetry/MedSurg (Inpatient)(11/23/20 19:06) bd Room Assignment: 411(11/23/20 19:06) bd Diagnosis - Pneumonia due to SARS-associated coronavirus - Covid 19 tony - Hypoxemia tony Forms: - Medication Reconciliation Form tony - SBAR form tony Signatures: Dispatcher [employer] Deisy Pennington Martha, RN RN mw Anderson, Corey, MD MD cha Ballard, Brenda, RN RN bb Antunez, Elena, RN RN ea Bryson, James RN jb4 Corrections: (The following items were deleted from the chart) 06:06 05:58 Telemetry/MedSurg (Inpatient) tony 06:06 05:58 tony 19:06 06:06 [facility] ER HOLD [facility] 19:06 06:06 ERHOLD- bd
--- NOTE | 2020-11-23 05:59 | ER ---
Nurse's Notes [facility] Name: Richard Valencia Age: 50 yrs Sex: Male : 1970 Arrival Date: 11/23/2020 Time: 03:52 Bed 2 Private MD: Diagnosis: Pneumonia due to SARS-associated coronavirus-Covid 19;Hypoxemia Presentation: 11/23 04:29 Chief complaint: Patient states: he was seen here Sunday and with Covid pneumonia bb but now is feeling worse and feels weak. Coronavirus screen: Client reports previous positive COVID test result. Ebola Screen: No symptoms or risks identified at this time. Initial Sepsis Screen: Does the patient meet any 2 criteria? No. Patient's initial sepsis screen is negative. Does the patient have a suspected source of infection? Yes: Productive cough/pneumonia. Risk Assessment: Do you want to hurt yourself or someone else? Patient reports no desire to harm self or others. Onset of symptoms was November 23, 2020. 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 - Social history:: Smoking status: Patient denies any tobacco usage or history of. Screenin:44 Abuse screen: Denies threats or abuse. Nutritional screening: No deficits noted. ea Tuberculosis screening: No symptoms or risk factors identified. Fall Risk None identified. Assessment: 04:40 General: Appears in no apparent distress. uncomfortable, Behavior is calm, cooperative, jb4 appropriate for age. Pain: Denies pain. Neuro: Level of Consciousness is awake, alert, obeys commands, Oriented to person, place, time, situation. Cardiovascular: Patient's skin is warm and dry. Respiratory: Airway is patent Respiratory effort is labored, Respiratory pattern is symmetrical, tachypnea. GI: No signs and/or symptoms were reported involving the gastrointestinal system. : EENT: No signs and/or symptoms were reported regarding the EENT system. Derm: Skin is intact, Skin is pink, warm \T\ dry. Musculoskeletal: Circulation, motion, and sensation intact. Range of motion: intact in all extremities. 04:43 Reassessment: Caro [phone]. ea 05:43 Reassessment: Patient and/or family updated on plan of care and expected duration. Pain ea level reassessed. Respiratory: Airway is patent Respiratory effort is labored, Respiratory pattern is tachypnea Pt sating 87% room air, pt placed on O2 at 2L per nasal cannula, tolerating well. 05:56 Reassessment: Patient appears in no apparent distress at this time. Patient and/or jb4 family updated on plan of care and expected duration. Pain level reassessed. Pt is resting in bed, continues to have tachypneic, labored respirations Remains Alert and oriented x4. 06:36 Reassessment: Pt continues to desat while at rest or when changing positions. Oxygen jb4 increased to 4L NC. Provider notified. 19:31 Reassessment: Patient and/or family updated on plan of care and expected duration. Pain ea level reassessed. Report given to receiving nurse on fourth floor, pt admitted to fourth left ED via hospital bed, pt tolerating well. Vital Signs: 04:29 BP 130 / 90; Pulse 105; Resp 28 S; Temp 98.8(O); Pulse Ox 98% on R/A; Weight 77.11 kg bb (R); Height 5 ft. 6 in. (167.64 cm) (R); Pain 0/10; 05:44 Pulse Ox 87% on R/A; ea 19:32 BP 146 / 98; Pulse 84; Resp 29; Temp 98; Pulse Ox 93% on 4 lpm NC; ea 04:29 Body Mass Index 27.44 (77.11 kg, 167.64 cm) bb 05:44 pt placed on O2 at 3 L per nasal cannula ea ED Course: 03:52 Patient arrived in ED. am2 04:31 Triage completed. bb 04:31 Arm band placed on. bb 04:33 Kole Darden MD is Attending Physician. tony 04:44 Patient has correct armband on for positive identification. Bed in low position. Call ea light in reach. Side rails up X2. 05:14 Inserted saline lock: 20 gauge in left antecubital area, using aseptic technique. ea 05:34 EKG done, by ED staff, reviewed by Kole Darden MD. jb4 05:55 Judd Cardona DO is Hospitalizing Provider. tony 06:36 Jaron Jin, RN is Primary Nurse. jb4 06:53 No provider procedures requiring assistance completed. Patient admitted, IV remains in jb4 place. 07:08 CT Chest For PE Angio In Process Unspecified. EDMS 07:21 XRAY Chest (1 view) In Process Unspecified. EDMS Administered Medications: 05:12 Drug: Zithromax (azithromycin) 500 mg Route: IVPB; Infused Over: 1 hrs; Site: left ea antecubital; 06:12 Follow up: Response: No adverse reaction; IV Status: Completed infusion; IV Intake: jb4 250ml 05:12 Drug: Aspirin 81 mg Route: PO; ea 06:39 Follow up: Response: No adverse reaction jb4 05:12 Drug: Pepcid (famotidine) 20 mg Route: IVP; Site: left antecubital; ea 06:39 Follow up: Response: No adverse reaction jb4 05:13 Drug: NS 0.9% 1000 ml Route: IV; Rate: 125 ml/hr; Site: left antecubital; ea 06:39 Follow up: Response: No adverse reaction; IV Status: Infusion continued upon admission jb4 05:13 Drug: Decadron - Dexamethasone 10 mg Route: IVP; Site: left antecubital; ea 05:45 Follow up: Response: No adverse reaction jb4 05:13 Drug: Rocephin (cefTRIAXone) 1 grams Route: IV; Rate: per protocol; Site: right ea antecubital; 05:20 Follow up: Response: No adverse reaction; IV Status: Completed infusion jb4 Intake: 06:12 IV: 250ml; Total: 250ml. jb4 Outcome: 05:58 Decision to Hospitalize by Provider. tony 06:53 Admitted to ER Hold. Please see [facility] for further documentation. 4 06:53 Condition: stable 06:53 Discharge instructions given to patient, Instructed on the need for admit, Demonstrated understanding of instructions. 19:53 Patient left the ED. ea Signatures: Dispatcher [employer] EDMS Kole Darden MD MD cha Ballard, Brenda, RN RN bb Jaron Jin, ARIANA RN jb4 Lorena Schultz am2 Stewart, Shakila, RN RN ea
--- NOTE | 2020-11-23 07:20 | RAD REPORT ---
EXAM DESCRIPTION: CT - Chest For Pe Angio - 11/23/2020 7:08 am CLINICAL HISTORY: Cough;Congestion COMPARISON: Thorax W/ Con dated 09/18/2018; Chest For Pe Angio dated 05/04/2016 FINDINGS: Chest Wall: No suspicious thyroid nodules or pathologic lymphadenopathy. Lungs: Mild patchy bilateral airspace disease predominantly ground-glass with some areas of more cons olidative airspace disease in the lung bases. Pleura: No significant effusions or pneumothorax. Mediastinum/kristen: No pathologic lymphadenopathy. Pulmonary arteries/Aorta: No filling defect identified. No aortic aneurysm. Heart: No significant pericardial effusion. Normal heart size. Scattered coronary artery calcificatio ns. Upper abdomen: No acute abnormality. Bones: No acute abnormality. IMPRESSION: Negative for pulmonary embolism. Mild bilateral airspace disease in a pattern concerning for Covid-19 pneumonia.
--- NOTE | 2020-11-23 07:20 | P.HP ---
Certification for Inpatient Patient admitted to: Inpatient With expected LOS: >2 Midnights Patient will require the following post-hospital care: None Practitioner: I am a practitioner with admitting privileges, knowledge of patient current condition, hospital course, and medical plan of care. Services: Services provided to patient in accordance with Admission requirements found in Title 42 Section 412.3 of the Code of Federal Regulations Patient History Date of Service: 11/23/20 Primary Care Provider: None Reason for admission: Shortness of breath History of Present Illness: 50-year-old male with history of hypertension, hyperlipidemia. Patient presented with increasing shortness of breath. Patient also reported some weakness, fever, chills. Symptoms started last Sunday. He started having fever as well. He was recently seen in the ER and found to be positive for Covid. His symptoms did not improve. Patient came to the ER with worsening symptoms. Patient was hypoxic. In the ER patient vital signs stable. Currently on 5 L per nasal cannula. Ferritin elevated greater than 1000. CRP elevated at 152. White count 12.9, hemoglobin 15. Platelet count 260. Sodium 135, potassium 3.5. BUN of 8, creatinine 0.84 with a GFR greater than 90. Glucose 126. Chest x-ray reveals Covid pneumonia. CT scan shows no evidence of pulmonary bolus him. Patient admitted for further evaluation and treatment. Allergies No Known Allergies Allergy (Verified 05/04/16 23:38) Home medications list reviewed: Yes Home Medications: atenoloL [Tenormin*] 50 mg PO DAILY 05/04/16 Albuterol Sulfate [Proair Hfa] 8.5 gm IH TID PRN #1 [id number].[id number] 05/06/16 Benzonatate [Tessalon Perle*] 200 mg PO TIDP PRN #30 cap 05/06/16 Pantoprazole [Protonix Tab*] 40 mg PO DAILYAC #30 tab 05/06/16 levoFLOXacin [Levaquin*] 500 mg PO DAILY 5 PM #5 tab 05/06/16 predniSONE [Prednisone*] 20 mg PO SEECOM #15 tab 05/06/16 Apixaban [Eliquis] 5 mg PO SEECOM #60 tablet 05/07/16 - Past Medical/Surgical History Diabetic: No -: HTN Past Surgical History: Reviewed- Non-Contributory Psychosocial/ Personal History: He is 26 years, has 3 children, he works as a industrial pipefitter journeyman. - Family History Family History: Reviewed- Non-Contributory - Social History Smoking Status: Never smoker Alcohol use: Yes CD- Drugs: No Caffeine use: Yes Place of Residence: Home Review of Systems General: Fever, Chills, Weakness, Malaise Eyes: Unremarkable ENT: Nose Congestion, As per HPI Respiratory: Shortness of Breath, SOB with Excertion, As per HPI Cardiovascular: Unremarkable Gastrointestinal: Unremarkable Genitourinary: Unremarkable Musculoskeletal: Unremarkable Integumentary: Unremarkable Neurological: Unremarkable Lymphatics: Unremarkable Physical Examination - Studies Laboratory Data (last 24 hrs) 11/23/20 04:50: PT 13.6 H, INR 1.18 11/23/20 04:50: WBC 12.90 H, Hgb 15.1, Hct 44.4, Plt Count 260 11/23/20 04:50: Sodium 135 L, Potassium 3.5, BUN 8, Creatinine 0.84, Glucose 126 H, Magnesium 2.3, Total Bilirubin 1.0, AST 62 H, ALT 75, Alkaline Phosphatase 66 Assessment and Plan - Plan Covid: Positive, unvaccinated CT scan: COMPARISON: Thorax W/ Con dated 09/18/2018; Chest For Pe Angio dated 05/04/2016 FINDINGS: Chest Wall: No suspicious thyroid nodules or pathologic lymphadenopathy. Lungs: Mild patchy bilateral airspace disease predominantly ground-glass with some areas of more consolidative airspace disease in the lung bases. Pleura: No significant effusions or pneumothorax. Mediastinum/kristen: No pathologic lymphadenopathy. Pulmonary arteries/Aorta: No filling defect identified. No aortic aneurysm. Heart: No significant pericardial effusion. Normal heart size. Scattered coronary artery calcifications. Upper abdomen: No acute abnormality. Bones: No acute abnormality. IMPRESSION: Negative for pulmonary embolism. Mild bilateral airspace disease in a pattern concerning for Covid-19 pneumonia. Physical Exam: GENERAL: The patient is a well-developed, well-nourished, in no apparent distress. Alert and oriented x3. VITAL SIGNS: Reviewed HEENT: Head is normocephalic and atraumatic. Extraocular muscles are intact. Pupils are equal, round, and reactive to light and accommodation. Nares appeared normal. Mouth is well hydrated and without lesions. Mucous membranes are moist. NECK: Supple. No carotid bruits. No lymphadenopathy or thyromegaly. LUNGS: Crackles bilateral. Currently on 5 L per nasal cannula. Decreased air movement bilateral HEART: Regular rate and rhythm, no appreciable gallops, rubs, murmurs or extra heart sounds ABDOMEN: Soft, nontender, and nondistended. Positive bowel sounds. No hepatosplenomegaly was noted. EXTREMITIES: Without any cyanosis, clubbing, rash, lesions or peripheral edema. NEUROLOGIC: The patient is oriented to person, place and time. Strength and sen sation are grossly intact. Face is symmetric. SKIN: Normal color, turgor and temperature. No ulcerations or rashes noted. Impression: Acute respiratory failure with hypoxia secondary to bilateral Covid pneumonia, unvaccinated Hypertension Plan: Acute respiratory failure with hypoxia secondary to bilateral Covid pneumonia, unvaccinated: Patient admitted for further evaluation and treatment. Continue to maintain saturations above 93%. Currently on 5 L per nasal cannula. Pulmonology consulted to further evaluate and treat. Will continue IV steroid, supplementation. Will start baricitinib per protocol. Encourage incentive spirometer, proning, and ambulation. Respiratory to continue to wean off oxygen. Will continue to assess. Will monitor electrolytes, lab including CRP and ferritin. Recheck x-ray tomorrow. We will continue to monitor daily. Hypertension: We will start metoprolol. Will monitor and adjust appropriately. Code Status: Full Code DVT prophylaxis: Lovenox Advanced Care Planning-30 minutes: Home at discharge Discharge Plan: Home Plan to discharge in: Greater than 2 days - Advance Directives Does patient have a Living Will: No Does patient have a Durable POA for Healthcare: No - Code Status/Comfort Care Code Status Assessed: Yes (Patient is full code) Time Spent Managing Pts Care (In Minutes): 55
--- NOTE | 2020-11-23 07:41 | RAD REPORT ---
EXAM DESCRIPTION: RAD - Chest Single View - 11/23/2020 7:21 am CLINICAL HISTORY: COUGH COMPARISON: Chest Single View dated 11/20/2020; Chest Pa And Lat (2 Views) dated 09/17/2018; Chest Sin gle View dated 03/17/2018; Chest Single View dated 12/19/2016; Chest For Pe Angio dated 11/23/2020 FINDINGS: Scattered bilateral airspace disease with decreased lung volumes which may accentuate the pulmonary markings The heart size is within normal limits.No acute osseous abnormality. No significan t pleural effusions or pneumothorax. IMPRESSION: Mild bilateral airspace disease concerning for multifocal pneumonia, including Covid-19 .
[2020-11-23] MEDS: ZINC SULFATE 220 MG CAP PO SCH (10:22)
[2020-11-23] MEDS ORDERED: BARICITINIB 2 MG TABLET PO SCH (10:22)
[2020-11-23] MEDS ORDERED: ONDANSETRON 4 MG/2 ML VIAL IV PRN (10:22)
[2020-11-23] MEDS: VITAMIN D 1000 UNIT TAB PO SCH (10:22)
[2020-11-23] MEDS: FAMOTIDINE 20 MG TAB PO SCH ×2 (10:22→21:21)
[2020-11-23] MEDS: ASCORBIC ACID 500 MG TABLET PO SCH ×4 (10:22→21:21)
[2020-11-23] MEDS ORDERED: ALBUTEROL 2.5 MG/3 ML NEB SOL NEB PRN (10:22)
[2020-11-23] MEDS ORDERED: IPRATROPIUM BROM 0.5MG/2.5ML NEB PRN (10:22)
[2020-11-23] MEDS: ASPIRIN EC 81 MG TAB PO SCH (10:22)
[2020-11-23] MEDS: THIAMINE HCL 100 MG TABLET PO SCH ×2 (10:22→21:21)
[2020-11-23] MEDS: METHYLPREDNISOLONE 125 MG INJ IV SCH (10:22)
[2020-11-23] MEDS: ENOXAPARIN 40 MG/0.4 ML SQ SCH (10:22)
[2020-11-23 10:57] VITALS: BMI 27.4
[2020-11-23] MEDS: BENZONATATE 100 MG CAP PO PRN ×2 (11:01→17:48)
[2020-11-23] MEDS ORDERED: BENZONATATE 100 MG CAP PO ONE ×2 (11:09→12:52)
[2020-11-23] MEDS ORDERED: ASCORBIC ACID 500 MG TABLET ONE ×2 (11:09→12:52)
[2020-11-23] MEDS ORDERED: ENOXAPARIN 80 MG/0.8 ML SQ ONE (11:09)
[2020-11-23] MEDS ORDERED: THIAMINE HCL 100 MG TABLET ONE (12:52)
[2020-11-23] MEDS ORDERED: METOPROLOL TAR 25 MG TAB ONE (12:52)
[2020-11-23] MEDS: IVERMECTIN 3 MG TABLET PO SCH (13:00)
[2020-11-23] MEDS: ACETAMINOPHEN 500 MG TAB PO PRN (13:11)
[2020-11-23] MEDS ORDERED: ACETAMINOPHEN 500 MG TAB ONE (13:24)
[2020-11-23] MEDS ORDERED: IVERMECTIN 3 MG TABLET PO SCH (15:00)
[2020-11-23] MEDS: METOPROLOL TAR 25 MG TAB PO SCH (17:44)
[2020-11-23 23:24] LABS: Urine Appearance CLEAR (Clear); Urine Bilirubin NEGATIVE (Negative); Urine Blood NEGATIVE (Negative); Urine Color YELLOW (Yellow); Urine Glucose NEGATIVE (Negative); Urine Protein NEGATIVE (Negative); Urine Specific Gravity 1.015 (1.005-1.030)
[2020-11-23 23:25] LABS: Urine Microscopic Reflex NO UMIC
[2020-11-24] MEDS: METHYLPREDNISOLONE 125 MG INJ IV SCH ×3 (00:07→17:00)
[2020-11-24 03:53] LABS: Absolute Lymphocytes (CBC) 0.6 K/uL (0.7-4.9); Basophils % 0.3 % (0-1.3); Lymphocytes % 6.2 % (15.3-44.8); RBC Red Blood Cell Count 4.57 M/uL (4.33-5.43)
[2020-11-24 04:17] LABS: ALT/SGPT 65 U/L (12-78); AST/SGOT 42 U/L (15-37); Albumin 2.6 g/dL (3.4-5.0); Alkaline Phosphatase 61 U/L (45-117); BUN Blood Urea Nitrogen 9 mg/dL (7-18); Bicarbonate 28 mmol/L (21-32); Bilirubin Total 0.5 mg/dL (0.2-1.0); Ferritin 1810.1 ng/mL (26-388); Glucose Level 154 mg/dL (74-106); Magnesium 2.5 mg/dL (1.8-2.4); Potassium 3.7 mmol/L (3.5-5.1); Protein, Total 7.3 g/dL (6.4-8.2); Sodium Level 139 mmol/L (136-145)
[2020-11-24 04:40] LABS: Blood Morphology Comment NOT SEEN (NOT SEEN); Platelet Estimate ADEQ
[2020-11-24] MEDS: METOPROLOL TAR 25 MG TAB PO SCH ×2 (05:32→17:48)
[2020-11-24] MEDS ORDERED: POTASSIUM CL SA 10 MEQ TAB PO ONE (06:00)
--- NOTE | 2020-11-24 06:07 | P.PN ---
Subjective Date of Service: 11/24/20 Primary Care Provider: None Chief Complaint: Shortness of breath Subjective: Improving Physical Examination - Vital Signs Temperature: 98.7 F Blood Pressure: 141/86 Pulse: 79 Respirations: 20 Pulse Ox (%): 95 Assessment & Plan Discharge Plan: Home Plan to discharge in: Greater than 2 days Physician Review Additional Text: Covid: Positive, unvaccinated CT scan: COMPARISON: Thorax W/ Con dated 09/18/2018; Chest For Pe Angio dated 05/04/2016 FINDINGS: Chest Wall: No suspicious thyroid nodules or pathologic lymphadenopathy. Lungs: Mild patchy bilateral airspace disease predominantly ground-glass with some areas of more consolidative airspace disease in the lung bases. Pleura: No significant effusions or pneumothorax. Mediastinum/kristen: No pathologic lymphadenopathy. Pulmonary arteries/Aorta: No filling defect identified. No aortic aneurysm. Heart: No significant pericardial effusion. Normal heart size. Scattered das ry artery calcifications. Upper abdomen: No acute abnormality. Bones: No acute abnormality. IMPRESSION: Negative for pulmonary embolism. Mild bilateral airspace disease in a pattern concerning for Covid-19 pneumonia. Physical Exam: GENERAL: The patient is a well-developed, well-nourished, in no apparent distress. Alert and oriented x3. VITAL SIGNS: Reviewed HEENT: Head is normocephalic and atraumatic. Extraocular muscles are intact. Pupils are equal, round, and reactive to light and accommodation. Nares appeared normal. Mouth is well hydrated and without lesions. Mucous membranes are moist. NECK: Supple. No carotid bruits. No lymphadenopathy or thyromegaly. LUNGS: Crackles bilateral. Currently on 5 L per nasal cannula. Decreased air movement bilateral HEART: Regular rate and rhythm, no appreciable gallops, rubs, murmurs or extra heart sounds ABDOMEN: Soft, nontender, and nondistended. Positive bowel sounds. No hepatosplenomegaly was noted. EXTREMITIES: Without any cyanosis, clubbing, rash, lesions or peripheral edema. NEUROLOGIC: The patient is oriented to person, place and time. Strength and sensation are grossly intact. Face is symmetric. SKIN: Normal color, turgor and temperature. No ulcerations or rashes noted. Impression: Acute respiratory failure with hypoxia secondary to bilateral Covid pneumonia, unvaccinated Hypertension Plan: Acute respiratory failure with hypoxia secondary to bilateral Covid pneumonia, unvaccinated: Patient reports slight improvement. Currently on 5 L per nasal cannula. Was on 7 L earlier. Continue IV steroid, supplementation. Will start baricitinib per protocol. Encourage incentive spirometer, proning, and ambulati on. Respiratory to continue to wean off oxygen. Will continue to assess. Will monitor electrolytes, lab including CRP and ferritin. Continue to monitor daily. Anticipate improvement over the next 48 hours Hypertension: Continue metoprolol. Will monitor and adjust appropriately. Code Status: Full Code DVT prophylaxis: Lovenox Advanced Care Planning-30 minutes: Home at discharge Time Spent Managing Pts Care (In Minutes): 55
--- NOTE | 2020-11-24 07:43 | EKG ---
Test Date: 2020-11-23 Test Time: 05:27:43 Electronics Assembler: DWAYNE MEASUREMENT RESULTS: Intervals: Rate: 105 NV: 136 QRSD: 80 QT: 334 QTc: 441 [place]: P: 44 NV: 136 QRS: 62 T: -10 INTERPRETIVE STATEMENTS: Sinus tachycardia T wave abnormality, consider inferior ischemia Abnormal ECG Compared to ECG 09/17/2018 19:29:25 T-wave abnormality now present Possible ischemia now present Sinus rhythm no longer present Electronically Signed On 11-24-20 07:39:56 CDT by Michele Byers
[2020-11-24] MEDS: ENOXAPARIN 40 MG/0.4 ML SQ SCH (08:21)
[2020-11-24] MEDS: VITAMIN D 1000 UNIT TAB PO SCH (08:22)
[2020-11-24] MEDS: ZINC SULFATE 220 MG CAP PO SCH (08:22)
[2020-11-24] MEDS: THIAMINE HCL 100 MG TABLET PO SCH ×2 (08:22→20:10)
[2020-11-24] MEDS: ASCORBIC ACID 500 MG TABLET PO SCH ×4 (08:22→20:10)
[2020-11-24] MEDS: BENZONATATE 100 MG CAP PO PRN (08:22)
[2020-11-24] MEDS: ASPIRIN EC 81 MG TAB PO SCH (08:22)
[2020-11-24] MEDS: FAMOTIDINE 20 MG TAB PO SCH ×2 (08:22→20:10)
--- NOTE | 2020-11-24 08:50 | RAD REPORT ---
EXAM DESCRIPTION: RAD - Chest Single View - 11/24/2020 4:57 am CLINICAL HISTORY: follow up COVID Chest pain. COMPARISON: Chest Single View dated 11/23/2020; Chest Single View dated 11/20/2020; Chest Pa And Lat (2 Views) dated 09/17/2018; Chest Single View dated 03/17/2018 FINDINGS: Portable technique limits examination quality. Since 11/23/2020, little overall change is seen in the aeration of the lungs. The heart is upper limi t of normal in size. No displaced fractures. IMPRESSION: No significant change is seen since comparative study.
[2020-11-24] MEDS: BARICITINIB 2 MG TABLET PO SCH (14:52)
[2020-11-24] MEDS: GUAIFENESIN/CODEINE 5ML UCUP PO PRN (16:53)
[2020-11-24] MEDS: ACETAMINOPHEN 500 MG TAB PO PRN (20:10)
[2020-11-25] MEDS: METHYLPREDNISOLONE 125 MG INJ IV SCH ×3 (00:27→16:14)
[2020-11-25] MEDS: GUAIFENESIN/CODEINE 5ML UCUP PO PRN ×4 (00:27→18:14)
[2020-11-25] MEDS: METOPROLOL TAR 25 MG TAB PO SCH ×2 (05:24→17:50)
--- NOTE | 2020-11-25 06:15 | P.PN ---
Subjective Date of Service: 11/25/20 Primary Care Provider: None Chief Complaint: Shortness of breath Subjective: Improving, Doing well Physical Examination - Vital Signs Temperature: 97.2 F Blood Pressure: 128/83 Pulse: 71 Respirations: 17 Pulse Ox (%): 94 Assessment & Plan Discharge Plan: Home Plan to discharge in: 48 Hours Physician Review Additional Text: Covid: Positive, unvaccinated CT scan: COMPARISON: Thorax W/ Con dated 09/18/2018; Chest For Pe Angio dated 05/04/2016 FINDINGS: Chest Wall: No suspicious thyroid nodules or pathologic lymphadenopathy. Lungs: Mild patchy bilateral airspace disease predominantly ground-glass with some areas of more consolidative airspace disease in the lung bases. Pleura: No significant effusions or pneumothorax. Mediastinum/kristen: No pathologic lymphadenopathy. Pulmonary arteries/Aorta: No filling defect identified. No aortic aneurysm. Heart: No significant pericardial effusion. Normal heart size. Scattered coron huong artery calcifications. Upper abdomen: No acute abnormality. Bones: No acute abnormality. IMPRESSION: Negative for pulmonary embolism. Mild bilateral airspace disease in a pattern concerning for Covid-19 pneumonia. Physical Exam: GENERAL: The patient is a well-developed, well-nourished, in no apparent distress. Alert and oriented x3. VITAL SIGNS: Reviewed HEENT: Head is normocephalic and atraumatic. Extraocular muscles are intact. Pupils are equal, round, and reactive to light and accommodation. Nares appeared normal. Mouth is well hydrated and without lesions. Mucous membranes are moist. NECK: Supple. No carotid bruits. No lymphadenopathy or thyromegaly. LUNGS: Crackles bilateral. Currently on 5 L per nasal cannula. Decreased air movement bilateral HEART: Regular rate and rhythm, no appreciable gallops, rubs, murmurs or extra heart sounds ABDOMEN: Soft, nontender, and nondistended. Positive bowel sounds. No hepatosplenomegaly was noted. EXTREMITIES: Without any cyanosis, clubbing, rash, lesions or peripheral edema. NEUROLOGIC: The patient is oriented to person, place and time. Strength and sensation are grossly intact. Face is symmetric. SKIN: Normal color, turgor and temperature. No ulcerations or rashes noted. Impression: Acute respiratory failure with hypoxia secondary to bilateral Covid pneumonia, unvaccinated Hypertension Plan: Acute respiratory failure with hypoxia secondary to bilateral Covid pneumonia, unvaccinated: Patient continues to improve. Currently on 4 L per nasal cannula. Continue current treatment plan. Continue IV steroid, supplementation. Will start baricitinib per protocol. Encourage incentive spirometer, proning, and a mbulation. Respiratory to continue to wean off oxygen. Will continue to assess. Will monitor electrolytes, lab including CRP and ferritin. Continue to monitor daily. Encourage ambulation. If doing well will consider possible discharge as early as tomorrow with home oxygen Hypertension: Continue metoprolol. Will monitor and adjust appropriately. Code Status: Full Code DVT prophylaxis: Lovenox Advanced Care Planning-30 minutes: Home at discharge Time Spent Managing Pts Care (In Minutes): 55
[2020-11-25 07:04] LABS: Absolute Lymphocytes (CBC) 0.6 K/uL (0.7-4.9); Basophils % 0.1 % (0-1.3); Hematocrit 45.6 % (39.6-49.0); Lymphocytes % 5.1 % (15.3-44.8); MPV 9.1 fL (7.6-11.3); RBC Red Blood Cell Count 5.04 M/uL (4.33-5.43)
[2020-11-25 07:24] LABS: ALT/SGPT 70 U/L (12-78); AST/SGOT 30 U/L (15-37); Albumin 2.8 g/dL (3.4-5.0); Alkaline Phosphatase 63 U/L (45-117); BUN Blood Urea Nitrogen 13 mg/dL (7-18); Bicarbonate 29 mmol/L (21-32); Bilirubin Total 0.8 mg/dL (0.2-1.0); Ferritin 1542.6 ng/mL (26-388); Glucose Level 152 mg/dL (74-106); Magnesium 2.7 mg/dL (1.8-2.4); Potassium 3.6 mmol/L (3.5-5.1); Protein, Total 7.8 g/dL (6.4-8.2); Sodium Level 140 mmol/L (136-145)
[2020-11-25] MEDS ORDERED: POTASSIUM CL SA 10 MEQ TAB PO ONE (08:00)
[2020-11-25] MEDS: VITAMIN D 1000 UNIT TAB PO SCH (09:00)
[2020-11-25] MEDS: FAMOTIDINE 20 MG TAB PO SCH ×2 (09:16→20:28)
[2020-11-25] MEDS: ASPIRIN EC 81 MG TAB PO SCH (09:16)
[2020-11-25] MEDS: ZINC SULFATE 220 MG CAP PO SCH (09:16)
[2020-11-25] MEDS: ASCORBIC ACID 500 MG TABLET PO SCH ×4 (09:16→20:28)
[2020-11-25] MEDS: THIAMINE HCL 100 MG TABLET PO SCH ×2 (09:16→20:28)
[2020-11-25] MEDS: ENOXAPARIN 40 MG/0.4 ML SQ SCH (09:17)
[2020-11-25] MEDS: BARICITINIB 2 MG TABLET PO SCH (09:56)
[2020-11-25] MEDS: IVERMECTIN 3 MG TABLET PO SCH (12:37)
[2020-11-25 14:03] LABS: Blood Morphology Comment NOT SEEN (NOT SEEN); Platelet Estimate INCR; White Blood Cell Scan OK (OK)
[2020-11-26] MEDS: METHYLPREDNISOLONE 125 MG INJ IV SCH ×2 (01:09→08:01)
[2020-11-26] MEDS: GUAIFENESIN/CODEINE 5ML UCUP PO PRN ×2 (01:29→08:12)
[2020-11-26 05:40] VITALS: O2SAT 94
[2020-11-26] MEDS: METOPROLOL TAR 25 MG TAB PO SCH (05:43)
--- NOTE | 2020-11-26 06:20 | P.PN ---
Subjective Date of Service: 11/26/20 Primary Care Provider: None Chief Complaint: Shortness of breath Subjective: Improving, Doing well Physical Examination - Vital Signs Temperature: 97.7 F Blood Pressure: 132/82 Pulse: 43 Respirations: 16 Pulse Ox (%): 94 Assessment & Plan Discharge Plan: Home Plan to discharge in: 24 Hours Physician Review Additional Text: Covid: Positive, unvaccinated CT scan: COMPARISON: Thorax W/ Con dated 09/18/2018; Chest For Pe Angio dated 05/04/2016 FINDINGS: Chest Wall: No suspicious thyroid nodules or pathologic lymphadenopathy. Lungs: Mild patchy bilateral airspace disease predominantly ground-glass with some areas of more consolidative airspace disease in the lung bases. Pleura: No significant effusions or pneumothorax. Mediastinum/kristen: No pathologic lymphadenopathy. Pulmonary arteries/Aorta: No filling defect identified. No aortic aneurysm. Heart: No significant pericardial effusion. Normal heart size. Scattered coron huong artery calcifications. Upper abdomen: No acute abnormality. Bones: No acute abnormality. IMPRESSION: Negative for pulmonary embolism. Mild bilateral airspace disease in a pattern concerning for Covid-19 pneumonia. Repeat CXR: COMPARISON: November 24, 2020 FINDINGS: Minimal improvement in the bilateral pulmonary opacities. Heart is normal size IMPRESSION: Minimal improvement in the bilateral pneumonia Physical Exam: GENERAL: The patient is a well-developed, well-nourished, in no apparent distress. Alert and oriented x3. VITAL SIGNS: Reviewed HEENT: Head is normocephalic and atraumatic. Extraocular muscles are intact. Pupils are equal, round, and reactive to light and accommodation. Nares appeared normal. Mouth is well hydrated and without lesions. Mucous membranes are moist. NECK: Supple. No carotid bruits. No lymphadenopathy or thyromegaly. LUNGS: Crackles bilateral. Currently on 5 L per nasal cannula. Decreased air movement bilateral HEART: Regular rate and rhythm, no appreciable gallops, rubs, murmurs or extra heart sounds ABDOMEN: Soft, nontender, and nondistended. Positive bowel sounds. No hepatosplenomegaly was noted. EXTREMITIES: Without any cyanosis, clubbing, rash, lesions or peripheral edema. NEUROLOGIC: The patient is oriented to person, place and time. Strength and sensation are grossly intact. Face is symmetric. SKIN: Normal color, turgor and temperature. No ulcerations or rashes noted. Impression: Acute respiratory failure with hypoxia secondary to bilateral Covid pneumonia, unvaccinated Hypertension Plan: Acute respiratory failure with hypoxia secondary to bilateral Covid pneumonia, unvaccinated: Patient stable at this time. Less oxygen requirement noted. Currently on 3 L per nasal cannula. Patient ambulating without significant drops in saturation. Will plan for discharge today. Will need home oxygen. Continue IV steroid, supplementation. Will start baricitinib per protocol. Encourage incentive spirometer, proning, and ambulation. Respiratory to continue to wean off oxygen. Will continue to assess. Will monitor electrolytes, lab including CRP and ferritin. Continue to monitor daily. Encourage ambulation. Hypertension: Continue metoprolol. Will monitor and adjust appropriately. Code Status: Full Code DVT prophylaxis: Lovenox Advanced Care Planning-30 minutes: Home at discharge Time Spent Managing Pts Care (In Minutes): 55
[2020-11-26 06:38] LABS: Absolute Lymphocytes (CBC) 0.7 K/uL (0.7-4.9); Basophils % 0.2 % (0-1.3); Hematocrit 41.7 % (39.6-49.0); MPV 9.2 fL (7.6-11.3); RBC Red Blood Cell Count 4.63 M/uL (4.33-5.43)
[2020-11-26 07:10] LABS: ALT/SGPT 82 U/L (12-78); AST/SGOT 32 U/L (15-37); Albumin 2.6 g/dL (3.4-5.0); Alkaline Phosphatase 56 U/L (45-117); BUN Blood Urea Nitrogen 14 mg/dL (7-18); Bicarbonate 30 mmol/L (21-32); Bilirubin Total 0.7 mg/dL (0.2-1.0); Ferritin 968.8 ng/mL (26-388); Glucose Level 150 mg/dL (74-106); Magnesium 2.8 mg/dL (1.8-2.4); Potassium 4.1 mmol/L (3.5-5.1); Protein, Total 6.8 g/dL (6.4-8.2); Sodium Level 140 mmol/L (136-145)
--- NOTE | 2020-11-26 07:12 | RAD REPORT ---
EXAM DESCRIPTION: Leopoldo Single View11/26/2020 5:00 am CLINICAL HISTORY: Shortness of breath COMPARISON: November 24, 2020 FINDINGS: Minimal improvement in the bilateral pulmonary opacities. Heart is normal size IMPRESSION: Minimal improvement in the bilateral pneumonia
[2020-11-26] MEDS: ENOXAPARIN 40 MG/0.4 ML SQ SCH (08:00)
[2020-11-26] MEDS: VITAMIN D 1000 UNIT TAB PO SCH (08:01)
[2020-11-26] MEDS: THIAMINE HCL 100 MG TABLET PO SCH (08:01)
[2020-11-26] MEDS: ZINC SULFATE 220 MG CAP PO SCH (08:01)
[2020-11-26] MEDS: FAMOTIDINE 20 MG TAB PO SCH (08:01)
[2020-11-26] MEDS: ASPIRIN EC 81 MG TAB PO SCH (08:01)
[2020-11-26] MEDS: ASCORBIC ACID 500 MG TABLET PO SCH (08:01)
[2020-11-26] MEDS: BARICITINIB 2 MG TABLET PO SCH (08:02)
[2020-11-26 09:22] LABS: Blood Morphology Comment NOT SEEN (NOT SEEN); Platelet Estimate ADEQ
--- NOTE | 2020-11-26 10:11 | P.DS ---
Admission Date: 11/23/20 Discharge Date: 11/26/20 Primary Care Provider: None Disposition: ROUTINE DISCHARGE Discharge Condition: GOOD Reason for Admission: Shortness of breath Consultations: Pulmonary-Dr. Davis Procedures: Covid: Positive, unvaccinated CT scan: COMPARISON: Thorax W/ Con dated 09/18/2018; Chest For Pe Angio dated 05/04/2016 FINDINGS: Chest Wall: No suspicious thyroid nodules or pathologic lymphadenopathy. Lungs: Mild patchy bilateral airspace disease predominantly ground-glass with some areas of more consolidative airspace disease in the lung bases. Pleura: No significant effusions or pneumothorax. Mediastinum/kristen: No pathologic lymphadenopathy. Pulmonary arteries/Aorta: No filling defect identified. No aortic aneurysm. Heart: No significant pericardial effusion. Normal heart size. Scattered coronary artery calcifications. Upper abdomen: No acute abnormality. Bones: No acute abnormality. IMPRESSION: Negative for pulmonary embolism. Mild bilateral airspace disease in a pattern concerning for Covid-19 pneumonia. Repeat CXR: COMPARISON: November 24, 2020 FINDINGS: Minimal improvement in the bilateral pulmonary opacities. Heart is normal size IMPRESSION: Minimal improvement in the bilateral pneumonia Medical problem list: Acute respiratory failure with hypoxia secondary to bilateral Covid pneumonia, unvaccinated Hypertension Brief History of Present Illness: 50-year-old male with history of hypertension, hyperlipidemia. Patient presented with increasing shortness of breath. Patient also reported some weakness, fever, chills. Symptoms started last Sunday. He started having fever as well. He was recently seen in the ER and found to be positive for Covid. His symptoms did not improve. Patient came to the ER with worsening symptoms. Patient was hypoxic. In the ER patient vital signs stable. Currently on 5 L per nasal cannula. Ferritin elevated greater than 1000. CRP elevated at 152. White count 12.9, hemoglobin 15. Platelet count 260. Sodium 135, potassium 3.5. BUN of 8, creatinine 0.84 with a GFR greater than 90. Glucose 126. Chest x-ray reveals Covid pneumonia. CT scan shows no evidence of pulmonary bolus him. Patient admitted for further evaluation and treatment. Hospital Course: Patient presented with acute respiratory failure with hypoxia secondary to bilateral Covid pneumonia. Patient is unvaccinated. Patient was admitted for treatment. Patient received IV steroids, supplementation, and baricitinib. The patient has done well. No significant shortness of breath. CRP and ferritin h ave improved. Patient currently on 3 L per nasal cannula. Patient ambulating without significant drops in saturation. At discharge the patient will continue with home oxygen to maintain sats above 93%. Recommend to continue with oxygen at 3 L per nasal cannula. Recommend to utilize pulse oximeter to monitor his oxygen levels. At discharge patient will continue with prednisone 20 mg 1 pill twice daily for 7 days then 1 pill once daily for 7 days. At discharge patient will be provided Robitussin with codeine 5 mL 3 times a day as needed for cough, albuterol 2 puffs 3 times a day as needed for shortness of breath. Patient will continue with aspirin 81 mg daily. Patient will also continue with vitamin supplementation including vitamin C 500 mg 1 pill 3 times a day, vitamin D 2000 units daily, thiamine 100 mg 1 pill twice daily, and zinc 220 mg 1 pill daily. Recommend to continue with incentive spirometer, ambulation and proning. Will also recommend to continue COVID-19 isolation as recommended by CDC. Patient will continue with facemask use, handwashing, and social distancing. Recommend follow-up with pulmonology within 1 week to follow-up his hospitalization. Pulmonology will continue to wean off oxygen. Recommend to follow-up with PCP in 1 week to follow-up this hospitalization and continue his care. Patient with underlying hypertension. Patient has used atenolol in the past. This was changed to metoprolol. Blood pressure stable on metoprolol. Recommend to discontinue atenolol at discharge. At discharge patient will continue with metoprolol 12.5 mg 1 pill twice daily. Recommend to maintain blood pressure less than 130/80. Further adjustment can be done by his PCP. Recommend follow- up with PCP to further monitor and adjust medication. Vital Signs/Physical Exam: Temp Pulse Resp BP Pulse Ox 97.7 F 43 L 16 132/82 94 11/26/20 10:11/26/20 10:00 11/26/20 10:11/26/20 10:11/26/20 10:00 General: Alert, In no apparent distress, Oriented x3, Cooperative HEENT: Atraumatic Neck: Supple Respiratory: Clear to auscultation bilaterally, Other (Currently on 3 L per nasal cannula) Cardiovascular: Normal pulses, Regular rate/rhythm Gastrointestinal: Normal bowel sounds, No tenderness, No masses, No rebound, No guarding Musculoskeletal: No erythema, No tenderness, No warmth Integumentary: No tenderness/swelling Neurological: Normal speech, Normal strength at 5/5 x4 extr, Normal tone, Normal affect Laboratory Data at Discharge: WBC 13.20 K/uL (4.3-10.9) H 11/26/20 06:11 Hgb 13.8 g/dL (13.6-17.9) 11/26/20 06:11 Hct 41.7 % (39.6-49.0) 11/26/20 06:11 Plt Count 388 K/uL (152-406) 11/26/20 06:11 PT 13.6 SECONDS (9.5-12.5) H 11/23/20 04:50 INR 1.18 11/23/20 04:50 Sodium 140 mmol/L (136-145) 11/26/20 06:11 Potassium 4.1 mmol/L (3.5-5.1) 11/26/20 06:11 BUN 14 mg/dL (7-18) 11/26/20 06:11 Creatinine 0.75 mg/dL (0.55-1.3) 11/26/20 06:11 Glucose 150 mg/dL (74-106) H 11/26/20 06:11 Magnesium 2.8 mg/dL (1.8-2.4) H 11/26/20 06:11 Total Bilirubin 0.7 mg/dL (0.2-1.0) 11/26/20 06:11 AST 32 U/L (15-37) 11/26/20 06:11 ALT 82 U/L (12-78) H 11/26/20 06:11 Alkaline Phosphatase 56 U/L (45-117) 11/26/20 06:11 Home Medications: Albuterol Inhaler [Ventolin Inhaler*] 2 puff IH TID PRN #1 hfa.aer.ad 11/26/20 Ascorbic Acid [Vitamin C*] 500 mg PO TID #90 tablet 11/26/20 Aspirin [Aspirin EC 81 MG] 81 mg PO DAILY #30 tablet. 11/26/20 Cholecalciferol (Vitamin D3) [Vitamin D 1000 Iu Tab*] 2,000 unit PO DAILY #60 tab 11/26/20 Guaifen W/Codeine Syrup [ROBITUSSIN A-C Syrup*] 10 ml PO TID PRN #1 bottle 11/26/20 Metoprolol Tartrate [Lopressor*] 12.5 mg PO BID 6AM 6PM #60 tab 11/26/20 Thiamine HCl [Vitamin B-1*] 100 mg PO BID #60 tablet 11/26/20 Zinc Sulfate [Zinc Sulfate*] 220 mg PO DAILY #30 cap 11/26/20 predniSONE [Deltasone] 20 mg PO SEECOM #21 tab 11/26/20 New Medications: Aspirin [Aspirin EC 81 MG] 81 mg PO DAILY #30 tablet. Metoprolol Tartrate [Lopressor*] 12.5 mg PO BID 6AM 6PM #60 tab predniSONE [Deltasone] 20 mg PO SEECOM #21 tab Guaifen W/Codeine Syrup [ROBITUSSIN A-C Syrup*] 10 ml PO TID PRN #1 bottle PRN Reason: Cough Albuterol Inhaler [Ventolin Inhaler*] 2 puff IH TID PRN #1 hfa.aer.ad PRN Reason: Shortness Of Breath Thiamine HCl [Vitamin B-1*] 100 mg PO BID #60 tablet Ascorbic Acid [Vitamin C*] 500 mg PO TID #90 tablet Cholecalciferol (Vitamin D3) [Vitamin D 1000 Iu Tab*] 2,000 unit PO DAILY #60 tab Zinc Sulfate [Zinc Sulfate*] 220 mg PO DAILY #30 cap Physician Discharge Instructions: Patient presented with acute respiratory failure with hypoxia secondary to bilateral Covid pneumonia. Patient is unvaccinated. Patient was admitted for treatment. Patient received IV steroids, supplementation, and baricitinib. The patient has done well. No significant shortness of breath. CRP and ferritin have improved. Patient currently on 3 L per nasal cannula. Patient ambulating without significant drops in saturation. At discharge the patient will continue with home oxygen to maintain sats above 93%. Recommend to continue with oxygen at 3 L per nasal cannula. Recommend to utilize pulse oximeter to monitor his oxygen levels. At discharge patient will continue with prednisone 20 mg 1 pill twice daily for 7 days then 1 pill once daily for 7 days. At discharge patient will be provided Robitussin with codeine 5 mL 3 times a day as needed for cough, albuterol 2 puffs 3 times a day as needed for shortness of breath. Patient will continue with aspirin 81 mg daily. Patient will also continue with vitamin supplementation including vitamin C 500 mg 1 pill 3 times a day, vitamin D 2000 units daily, thiamine 100 mg 1 pill twice daily, and zinc 220 mg 1 pill daily. Recommend to continue with incentive spirometer, ambulation and proning. Will also recommend to continue COVID-19 isolation as recommended by CDC. Patient will continue with facemask use, handwashing, and social distancing. Recommend follow-up with pulmonology within 1 week to follow-up his hospitalization. Pulmonology will continue to wean off oxygen. Recommend to follow-up with PCP in 1 week to follow-up this hospitalization and continue his care. Patient with underlying hypertension. Patient has used atenolol in the past. This was changed to metoprolol. Blood pressure stable on metoprolol. Recommend to discontinue atenolol at discharge. At discharge patient will continue with metoprolol 12.5 mg 1 pill twice daily. Recommend to maintain blood pressure less than 130/80. Further adjustment can be done by his PCP. Recommend follow- up with PCP to further monitor and adjust medication. Diet: AHA Activity: Ad hair Followup: NONE,NONE [Primary Care Provider] - Time spent managing pt's care (in minutes): 55
[2020-11-26 11:31] VITALS: BP 140/86; TEMP 97.4
== END 2020-11-26 12:50 | disposition home or self-care (01) | DRG 177 ==
LOC: ER 03:49 → ERHOLD 07:04 → 4TH 19:20
PROVIDERS: ADMIT Family Medicine; ATTEND Family Medicine
DX: U07.1 COVID-19 (principal); J12.82 Pneumonia due to coronavirus disease 2019; J96.01 Acute respiratory failure with hypoxia; I10 Essential (primary) hypertension; E78.5 Hyperlipidemia, unspecified
CPT/HCPCS: 36415; 71045; 71275; 80048; 80053; 80076; 81003; 82728; 83735; 83880; 84484; 85025; 85610; 86140; 87040; 93005; 94010; 94640; 99285; J0456; J1100; J1650; J2930; J7030; J7050; Q9967